=== PATIENT | female | born 1980 | race African-American/Black ===

== ENCOUNTER 2019-06-17 06:52 | Inpatient (IN) | payer BC, OTHER ==
[2019-06-17] MEDS ORDERED: DEXTROSE 5%-LACTATED RINGERS 1,000 ML IV SCH (07:00)
[2019-06-17 08:08] LABS: BASO % 0.3 % (0-2.0); EOS % 1.6 % (0-4.5); HEMATOCRIT 30.8 % (32.4-45.2); LYMPH % 14.4 % (8-40); MCH 26.1 pg (25.7-33.7); MCHC 32.5 g/dl (32.0-36.0); MEAN CELL VOLUME 80.2 fl (80-96); MEAN PLT VOLUME 10.7 fl (7.5-11.1); MONO % 8.1 % (3.8-10.2); NEUT % 75.6 % (42.8-82.8); PLATELET COUNT 145 K/MM3 (134-434); RBC 3.84 M/mm3 (3.60-5.2); RDW 16.1 % (11.6-15.6); WHITE BLOOD COUNT 14.7 K/mm3 (4.0-10.0)
[2019-06-17 08:32] LABS: ALBUMIN 2.6 g/dl (3.4-5.0); BILIRUBIN,TOTAL 0.2 mg/dL (0.2-1); BLOOD UREA NITROGEN 14.2 mg/dL (7-18); CALCIUM 8.6 mg/dL (8.5-10.1); CREATININE 0.6 mg/dL (0.55-1.3); POTASSIUM 4.1 mmol/L (3.5-5.1); TOT PROT 5.8 g/dl (6.4-8.2); URIC ACID 5.4 mg/dL (2.6-7.2)
[2019-06-17 08:37] LABS: RETICULOCYTES 2.41 % (0.5-1.5)
[2019-06-17] MEDS ORDERED: PROMETHAZINE HCL 25 MG/1 ML VIAL IVPB ONE (08:38)
[2019-06-17] MEDS ORDERED: BUTORPHANOL TARTRATE 1 MG/ML VIAL IVPUSH ONE (08:38)
[2019-06-17 08:42] LABS: SGOT/AST 21 U/L (15-37); SGPT/ALT 28 U/L (13-61)
[2019-06-17 08:44] LABS: INR 0.92 (0.83-1.09); PROTHROMBIN TIME (PATIENT) 10.8 SEC (9.7-13.0)
[2019-06-17 08:46] LABS: ACTIVATED PTT 24.1 SECONDS (25.2-36.5)
--- NOTE | 2019-06-17 08:48 | HP ---
Past Medical History - Primary Care Physician PCP:: Angus Wall - Admission Chief Complaint: 34 weeks, iugr, AMA, PIH History of Present Illness: 38 yo f edc by bj 07/28/19 34.1 weeks gestation with hx of IUGR .less than 3 percentile with HTN and proteinuria , AMA . BP 140/90 , no head ache or blurred vision ,no RUQ pain , good fm, admitted for cervidil induction as per M recommendation. risks associated with induction and ulternatives discussed with patient History Source: Patient Limitations to Obtaining History: No Limitations - Past Medical History Heme/Onc: Yes: Anemia (hx of Thaassemia minor) - Past Surgical History Hx Myomectomy: No Hx Transabdominal Cerclage: No - Smoking History Have you smoked in the past 12 months: No - Alcohol/Substance Use Hx Alcohol Use: No History of Substance Use: reports: None - Social History Usual Living Arrangement: Yes: With Spouse History of Recent Travel: No Home Medications - Allergies Allergies/Adverse Reactions: Allergies Allergy/AdvReac Type Severity Reaction Status Date / Time amoxicillin [From Augmentin] Allergy Unknown Hives Verified 06/17/19 08:09 clavulanic acid Allergy Unknown Hives Verified 06/17/19 08:09 [From Augmentin] doxycycline Allergy Unknown Hives Verified 06/17/19 08:09 - Home Medications Home Medications: Ambulatory Orders Aspirin [ASA -] 81 mg PO DAILY 06/13/19 Ferrous Sulfate [Feosol] 325 mg PO BID 06/13/19 Vitamins (Sjr) - 1 tab PO DAILY 06/13/19 Review of Systems - Review of Systems Constitutional: reports: No Symptoms Eyes: reports: No Symptoms HENT: reports: No Symptoms Neck: reports: No Symptoms Cardiovascular: reports: No Symptoms Respiratory: reports: No Symptoms Gastrointestinal: reports: No Symptoms Genitourinary: reports: No Symptoms Breasts: reports: No Symptoms Reported Musculoskeletal: reports: No Symptoms Integumentary: reports: No Symptoms Neurological: reports: No Symptoms Endocrine: reports: No Symptoms Hematology/Lymphatic: reports: No Symptoms Psychiatric: reports: No Symptoms Physical Exam - Maternity Constitutional: Yes: Well Nourished, No Distress, Calm Eyes: Yes: WNL, Conjunctiva Clear, EOM Intact HENT: Yes: WNL, Atraumatic, Normocephalic Neck: Yes: WNL, Supple, Trachea Midline Cardiovascular: Yes: WNL, Regular Rate and Rhythm Breast(s): Yes: WNL - Abdominal Exam/OB Fundal Height: 32 Number of Fetuses: Single Presentation: Vertex Contractions: No Intensity: Unaware Monitor Mode: External Heart Rate Location: [facility] Category: I Accelerations: Non-Uniform Decelerations: None - Vaginal Exam/OB Vaginal Bleediing: No Speculum Exam: No Dilatation (cm): closed Effacement (%): 25 Amniotic Membrane Status: Intact Presentation: Vertex/Position Station: -3 - Physical Exam Musculoskeletal: Yes: WNL Extremities: Yes: WNL Edema: Yes Edema: LLE: 2+, RLE: 2+ Integumentary: Yes: WNL Deep Tendon Reflex Grade: Normal +2 ...Motor Strength: WNL Psychiatric: Yes: WNL - Labs Lab Results: CBC, BMP 06/17/19 07:52 06/17/19 07:52 Hemorrhage Risk Assessment - Risk Factors Medium Risk Factors: Yes: None High Risk Factors: Yes: None Risk Score: 1 Risk Level: Medium Risk Problem List - Problems (1) with 34 completed weeks gestation Code(s): Z3A.34 - 34 WEEKS GESTATION OF (2) IUGR (intrauterine growth restriction) affecting care of mother Code(s): O36.5990 - MATERN CARE FOR OTH OR SUSP POOR FETL GRTH, UNSP TRI, UNSP Qualifiers: Fetus number: single or unspecified fetus Trimester: third trimester Qualified Code(s): O36.5930 - Maternal care for other known or suspected poor growth, third trimester, not applicable or unspecified (3) induced hypertension, antepartum Code(s): O13.9 - GESTATIONAL HTN W/O SIGNIFICANT PROTEINURIA, UNSP TRIMESTER (4) Advanced maternal age (AMA) in Code(s): NHM0918 - Assessment/Plan IUGR, PIH, asymptomatic, BP stable , if symptomatic or increase in BP will start MGso4 admit for cervidil induction , risks associated with cervidil discussed , ulternatives c/s risks explained, GBS unknown PCN allergy , will start Clindamycin cont. [facility] lab monitor BP,
[2019-06-17 08:59] VITALS: BMI 37.9
[2019-06-17] MEDS ORDERED: DINOPROSTONE 10 MG VAGINAL SUPPOSITORY VG ONE (09:00)
[2019-06-17] MEDS ORDERED: CLINDAMYCIN 900 MG PREMIX IVPB 900 MG/50 ML BAG IVPB ONE (09:00)
[2019-06-17] MEDS ORDERED: CLINDAMYCIN PHOSPHATE 600 MG/4 ML VIAL ONE (09:21)
[2019-06-17 14:21] LABS: ANISOCYTOSIS 1+; MACROCYTOSIS 1+; PLATELET ESTIMATE DECREASED
[2019-06-17] MEDS: CLINDAMYCIN 600MG PREMIX IVPB 600 MG/50 ML BAG IVPB SCH (15:15)
[2019-06-17] MEDS ORDERED: CITRIC ACID/SODIUM CITRATE 30 ML UNIT-DOSE CUP PO ONE (21:14)
[2019-06-17] MEDS ORDERED: OXYTOCIN 20 UNITS in 0.9% NS 20 UNIT/1,000 ML INFUS.BAG IV ONE (21:15)
[2019-06-17] MEDS ORDERED: PROPOFOL 20 ML ONE (21:18)
[2019-06-17] MEDS ORDERED: SUCCINYLCHOLINE CHLORIDE 200 MG/10 ML SYRINGE ONE (21:18)
[2019-06-17] MEDS ORDERED: morphine SULFATE/PF 0.5 MG/ML (2cc Syringe - QUVA) ONE (21:18)
[2019-06-17] MEDS ORDERED: PHENYLEPHRINE HCL 10 MG/1 ML SINGLE DOSE VIAL ONE (21:18)
[2019-06-17] MEDS ORDERED: ePHEDrine SULFATE 50 MG/1 ML AMPULE ONE (21:19)
--- NOTE | 2019-06-17 21:19 | PN ---
Progress Note (short form) - Note Progress Note: cervidil removed , cx clp vx -3 mi , fhr cat 1, irregular contraction , c/s discussed , agreed to have c/s. risks discussed , ulternatives pitocin discussed , declined Problem List - Problems (1) with 34 completed weeks gestation Code(s): Z3A.34 - 34 WEEKS GESTATION OF (2) IUGR (intrauterine growth restriction) affecting care of mother Code(s): O36.5990 - MATERN CARE FOR OTH OR SUSP POOR FETL GRTH, UNSP TRI, UNSP Qualifiers: Fetus number: single or unspecified fetus Trimester: third trimester Qualified Code(s): O36.5930 - Maternal care for other known or suspected poor growth, third trimester, not applicable or unspecified (3) induced hypertension, antepartum Code(s): O13.9 - GESTATIONAL HTN W/O SIGNIFICANT PROTEINURIA, UNSP TRIMESTER (4) Advanced maternal age (AMA) in Code(s): UPM5048 -
[2019-06-17] MEDS ORDERED: OXYTOCIN 10 UNITS/ML VIAL ONE (21:49)
[2019-06-17] MEDS ORDERED: KETOROLAC TROMETHAMINE 30 MG/1 ML VIAL ONE ×2 (21:51→22:20)
[2019-06-17] MEDS ORDERED: ONDANSETRON 4 MG/2 ML VIAL IVPUSH PRN (22:12)
[2019-06-17] MEDS ORDERED: IBUPROFEN 600 MG TABLET (FP) PO PRN (22:12)
[2019-06-17] MEDS ORDERED: diphenhydrAMINE HCL 25 MG CAPSULE (FP) PO PRN (22:29)
[2019-06-17] MEDS ORDERED: METHYLERGONOVINE MALEATE 0.2 MG/1 ML AMP IM PRN (22:29)
[2019-06-17] MEDS ORDERED: IBUPROFEN 800 MG/8 ML IJ IVPB PRN (22:29)
[2019-06-17] MEDS ORDERED: BENZOCAINE 28 GM HEMORRHOIDAL OINTMENT PR PRN (22:29)
[2019-06-17] MEDS ORDERED: WITCH HAZEL 50% (TUCKS) 40 PAD/JAR PAD TP PRN (22:29)
[2019-06-17] MEDS ORDERED: BENZOCAINE 20% 57 GM BOTTLE TP PRN (22:29)
[2019-06-17] MEDS ORDERED: oxyCODONE HCL 5 MG TABLET PO PRN ×2 (22:29)
[2019-06-17] MEDS ORDERED: OXYTOCIN 20 UNITS in 0.9% NS 20 UNIT/1,000 ML INFUS.BAG IV SCH (22:30)
--- NOTE | 2019-06-17 22:40 | OP ---
Operative Note - Note: Operative Date: 06/17/19 Pre-Operative Diagnosis: 34 weeks, IUGR, PIH Operation: primary LST c/s Findings: live baby girl 05/12. OP position, clear fluid Surgeon: Angus Wall Surgery Specialist: Reid Rajput Anesthesia: Spinal Specimens Removed: placenta Estimated Blood Loss (mls): 500 Drains & Tubes with Location: [place] Blood Volume Replaced (mls): 0 Operative Report Dictated: Yes
[2019-06-18] MEDS: CLINDAMYCIN 600MG PREMIX IVPB 600 MG/50 ML BAG IVPB SCH ×3 (01:50→17:23)
--- NOTE | 2019-06-18 06:38 | PN ---
Post Progress Note - Subjective Subjective: No complaints. Post Day: 1 Type of Delivery: Primary C/S Vital Signs: Vital Signs Temperature 98.1 F 06/18/19 02:00 Pulse Rate 73 06/18/19 02:00 Respiratory Rate 18 06/18/19 04:00 Blood Pressure 137/57 L 06/18/19 02:00 O2 Sat by Pulse Oximetry (%) 98 06/18/19 00:00 Breast Exam: Yes: Soft Uterus: Yes: Fundus Firm, Fundus below umbilicus Incision: Yes: Dressing dry and intact Abdomen/GI: Yes: Abdomen soft Lochia: Yes: Rubra Lochia, amount: Small Extremities: Yes: Calves non-tender Perineum: Yes: Intact Activity: Ambulating - Labs Labs: CBC WBC 14.7 K/mm3 (4.0-10.0) H 06/17/19 07:52 RBC 3.84 M/mm3 (3.60-5.2) 06/17/19 07:52 Hgb 10.0 GM/dL (10.7-15.3) L 06/17/19 07:52 Hct 30.8 % (32.4-45.2) L 06/17/19 07:52 MCV 80.2 fl (80-96) 06/17/19 07:52 MCH 26.1 pg (25.7-33.7) 06/17/19 07:52 MCHC 32.5 g/dl (32.0-36.0) 06/17/19 07:52 RDW 16.1 % (11.6-15.6) H 06/17/19 07:52 Plt Count 145 K/MM3 (134-434) 06/17/19 07:52 MPV 10.7 fl (7.5-11.1) 06/17/19 07:52 Absolute Neuts (auto) 11.1 K/mm3 (1.5-8.0) H 06/17/19 07:52 Neutrophils % 75.6 % (42.8-82.8) 06/17/19 07:52 Neutrophils % (Manual) 81.0 % (42.8-82.8) 06/17/19 07:52 Band Neutrophils % 0.0 % 06/17/19 07:52 Lymphocytes % 14.4 % (8-40) 06/17/19 07:52 Lymphocytes % (Manual) 7.0 % (8-40) L 06/17/19 07:52 Monocytes % 8.1 % (3.8-10.2) 06/17/19 07:52 Monocytes % (Manual) 7 % (3.8-10.2) 06/17/19 07:52 Eosinophils % 1.6 % (0-4.5) 06/17/19 07:52 Eosinophils % (Manual) 1.0 % (0-4.5) 06/17/19 07:52 Basophils % 0.3 % (0-2.0) 06/17/19 07:52 Basophils % (Manual) 0.0 % (0-2.0) 06/17/19 07:52 Myelocytes % (Man) 3 % (0-2) H 06/17/19 07:52 Promyelocytes % (Man) 0 % (0-2) 06/17/19 07:52 Blast Cells % (Manual) 0 % (0-0) 06/17/19 07:52 Nucleated RBC % 0 % (0-0) 06/17/19 07:52 Metamyelocytes 0 % (0-2) 06/17/19 07:52 Hypochromia 0 06/17/19 07:52 Platelet Estimate Decreased 06/17/19 07:52 Polychromasia 1+ 06/17/19 07:52 Anisocytosis 1+ 06/17/19 07:52 Microcytosis 0 06/17/19 07:52 Macrocytosis 1+ 06/17/19 07:52 Fragmented RBCs 1+ 06/17/19 07:52 Retic Count 2.41 % (0.5-1.5) H 06/17/19 07:52 Haptoglobin 89 mg/dL (34-200) 06/17/19 07:52 Assessment/Plan PPD#1 s/p primary LT C/S. Pt is doing well. BP in normal range. Continue routine care and postop care. Ambulate F/u labs
[2019-06-18 07:41] LABS: BASO % 0.4 % (0-2.0); EOS % 0.9 % (0-4.5); HEMATOCRIT 30.1 % (32.4-45.2); HEMOGLOBIN 9.9 GM/dL (10.7-15.3); LYMPH % 12.1 % (8-40); MCHC 32.8 g/dl (32.0-36.0); MEAN PLT VOLUME 10.3 fl (7.5-11.1); NEUT % 78.6 % (42.8-82.8); PLATELET COUNT 138 K/MM3 (134-434); RBC 3.81 M/mm3 (3.60-5.2); RDW 16.4 % (11.6-15.6); WHITE BLOOD COUNT 12.5 K/mm3 (4.0-10.0)
--- NOTE | 2019-06-18 08:32 | PN ---
Progress Note (short form) - Note Progress Note: Post op day#1.S/P C Section under spinal with duramorph uneventful.Patient stable and has very little pain for which she is on medication.No any anesthesia related problem.Patient Dc from the anesthesia care.
[2019-06-18] MEDS: ENOXAPARIN NA (PORCINE) 40 MG/0.4 ML DISP.SYRIN SQ SCH (09:56)
[2019-06-18 10:40] LABS: ANISOCYTOSIS 0; MACROCYTOSIS 0; PLATELET ESTIMATE DECREASED
[2019-06-18] MEDS: ACETAMINOPHEN 325 MG TABLET (FP) PO PRN ×2 (13:29→19:29)
[2019-06-18] MEDS: IBUPROFEN 600 MG TABLET (FP) PO PRN ×2 (13:30→19:29)
[2019-06-18] MEDS: SIMETHICONE 80 MG TAB.CHEW (FP) PO PRN ×2 (13:33→19:29)
[2019-06-18] MEDS ORDERED: BISACODYL 10 MG SUPP.RECT PR PRN (22:30)
--- NOTE | 2019-06-19 00:33 | PN ---
Post Progress Note - Subjective Subjective: Patient without acute complaints. Denies headache, visual changes, RUQ pain Reports tolerating oral intake without nausea or vomiting. Ambulating without dizziness. Denies fevers or chills. Pain well controlled with oral pain medication. Hand expressing colostrum well Passing flatus. Post Day: 2 Type of Delivery: Primary C/S Vital Signs: Vital Signs Temperature 98.6 F 06/18/19 22:00 Pulse Rate 58 L 06/18/19 22:00 Respiratory Rate 18 06/18/19 22:00 Blood Pressure 137/74 06/18/19 22:00 O2 Sat by Pulse Oximetry (%) 98 06/18/19 00:00 Breast Exam: Yes: Soft Uterus: Yes: Fundus Firm, Fundus below umbilicus Incision: Yes: Sutures intact. No: Redness, Oozing Abdomen/GI: Yes: Abdomen soft, Abdominal Distention (mild soft), Tender (minimal ), Passing flatus, Tolerating PO Lochia: Yes: Rubra Lochia, amount: Moderate Extremities: Yes: Calves non-tender, Edema (+1) Activity: Ambulating - Labs Labs: CBC WBC 12.5 K/mm3 (4.0-10.0) H 06/18/19 07:03 RBC 3.81 M/mm3 (3.60-5.2) 06/18/19 07:03 Hgb 9.9 GM/dL (10.7-15.3) L 06/18/19 07:03 Hct 30.1 % (32.4-45.2) L 06/18/19 07:03 MCV 79.0 fl (80-96) L 06/18/19 07:03 MCH 26.0 pg (25.7-33.7) 06/18/19 07:03 MCHC 32.8 g/dl (32.0-36.0) 06/18/19 07:03 RDW 16.4 % (11.6-15.6) H 06/18/19 07:03 Plt Count 138 K/MM3 (134-434) 06/18/19 07:03 MPV 10.3 fl (7.5-11.1) 06/18/19 07:03 Absolute Neuts (auto) 9.8 K/mm3 (1.5-8.0) H 06/18/19 07:03 Neutrophils % 78.6 % (42.8-82.8) 06/18/19 07:03 Neutrophils % (Manual) 78.2 % (42.8-82.8) 06/18/19 07:03 Band Neutrophils % 1.0 % 06/18/19 07:03 Lymphocytes % 12.1 % (8-40) 06/18/19 07:03 Lymphocytes % (Manual) 12.9 % (8-40) D 06/18/19 07:03 Monocytes % 8.0 % (3.8-10.2) 06/18/19 07:03 Monocytes % (Manual) 7 % (3.8-10.2) 06/18/19 07:03 Eosinophils % 0.9 % (0-4.5) 06/18/19 07:03 Eosinophils % (Manual) 0.0 % (0-4.5) D 06/18/19 07:03 Basophils % 0.4 % (0-2.0) 06/18/19 07:03 Basophils % (Manual) 0.0 % (0-2.0) 06/18/19 07:03 Myelocytes % (Man) 0 % (0-2) D 06/18/19 07:03 Promyelocytes % (Man) 0 % (0-2) 06/18/19 07:03 Blast Cells % (Manual) 0 % (0-0) 06/18/19 07:03 Nucleated RBC % 0 % (0-0) 06/18/19 07:03 Metamyelocytes 1 % (0-2) D 06/18/19 07:03 Hypochromia 0 06/18/19 07:03 Platelet Estimate Decreased 06/18/19 07:03 Polychromasia 0 06/18/19 07:03 Poikilocytosis 0 06/18/19 07:03 Anisocytosis 0 06/18/19 07:03 Microcytosis 0 06/18/19 07:03 Macrocytosis 0 06/18/19 07:03 Fragmented RBCs 1+ 06/17/19 07:52 Retic Count 2.41 % (0.5-1.5) H 06/17/19 07:52 Haptoglobin 89 mg/dL (34-200) 06/17/19 07:52 Assessment/Plan 38 yo POD # 2 s/p primary CD, afebrile, mild asymptomatic anemia, vital signs stable, doing well 1. Continue routine postoperative care. 2. BPs stable, s/p magnesium, no signs of worsening PEC 3. Encourage ambulation and incentive spirometer use 4. Continue oral pain medication 5. Anticipate discharge home postoperative day #3 or #4
[2019-06-19] MEDS: SIMETHICONE 80 MG TAB.CHEW (FP) PO PRN ×3 (03:13→22:11)
[2019-06-19] MEDS: ACETAMINOPHEN 325 MG TABLET (FP) PO PRN ×4 (03:16→22:12)
[2019-06-19] MEDS: IBUPROFEN 600 MG TABLET (FP) PO PRN ×4 (03:18→22:13)
[2019-06-19] MEDS: ENOXAPARIN NA (PORCINE) 40 MG/0.4 ML DISP.SYRIN SQ SCH (09:31)
[2019-06-19] MEDS: LABETALOL HCL 200 MG TABLET (FP) PO PRN (15:59)
--- NOTE | 2019-06-19 17:25 | PATH ---
Surgical Pathology Report Patient Name: HORTENSIA MICHAUD [facility]. Rec. #: [id number] /Age/Gender: 1980 (Age: 38) / F Account: [id number] Location: [facility] OBS/SOCK LINER Taken: 06/17/2019 Received: 06/18/2019 Reported: 06/19/2019 Physicians: Angus Wall M.D. Specimen(s) Received PLACENTA Clinical History Thalassemia minor, abnormal Pap, dysmenorrhea, ovarian cyst, fibroids Postoperative diagnosis: IUGR, PIH, failed induction Final Diagnosis PLACENTA: THIRD TRIMESTER PLACENTA. TRIVASCULAR CORD. MEMBRANES WITH NO DIAGNOSTIC ABNORMALITIES. Electronically Signed Monse Rivera M.D. Gross Description The specimen is received fresh labeled placenta and is a 360 gram, 13.5 x 13.0 x 2.6 cm. placenta with attached membranes and umbilical cord. The attached membranes are rausch, translucent with focal opacities and insert marginally. The umbilical cord measures 9 cm. in length and averages 1.2 cm. in diameter. The cord inserts eccentrically, 2.5 cm. to the nearest margin. No true knots or strictures are identified. Cut surface of the umbilical cord reveals 3 vessels. The surface is patel-blue with minimal fibrin deposition and appropriate caliber vessels. The maternal surface is red-brown with focal defects. Sectioning reveals red-brown, spongy parenchyma. No lesions are identified. Drag Seiner sections are submitted in three cassettes as follows: 1- membrane rolls and umbilical cord; 2-3- full thickness sections of placenta. /06/18/2019 [facility]/06/18/2019
[2019-06-19] MEDS: SENNOSIDES/DOCUSATE COMBO (SENNA PLUS) TABLET (UD) PO PRN (22:09)
[2019-06-20] MEDS: LABETALOL HCL 200 MG TABLET (FP) PO PRN ×3 (06:11→22:57)
[2019-06-20 07:14] LABS: BASO % 0.3 % (0-2.0); EOS % 1.2 % (0-4.5); HEMOGLOBIN 9.7 GM/dL (10.7-15.3); LYMPH % 9.9 % (8-40); MCH 26.4 pg (25.7-33.7); MCHC 33.3 g/dl (32.0-36.0); MEAN CELL VOLUME 79.4 fl (80-96); MEAN PLT VOLUME 9.6 fl (7.5-11.1); MONO % 8.3 % (3.8-10.2); NEUT % 80.3 % (42.8-82.8); PLATELET COUNT 160 K/MM3 (134-434); RBC 3.66 M/mm3 (3.60-5.2); RDW 16.3 % (11.6-15.6); WHITE BLOOD COUNT 12.4 K/mm3 (4.0-10.0)
--- NOTE | 2019-06-20 08:01 | PN ---
Progress Note (short form) - Note Progress Note: pod 3 ,s/p c/s , doing well, ambulating , passing gas. no headache, blurred vision CBC, BMP 06/20/19 06:45 06/17/19 07:52 Last Vital Signs Temp Pulse Resp BP Pulse Ox 98.8 F 99 H 20 149/75 98 06/19/19 22:00 06/20/19 06:00 06/20/19 06:00 06/20/19 06:00 06/18/19 00:00 abdomen soft, no distension, no cva . BS present incision dry, clean no calf tenderness plan ambulate , cbc monitor BP Problem List - Problems (1) with 34 completed weeks gestation Code(s): Z3A.34 - 34 WEEKS GESTATION OF (2) IUGR (intrauterine growth restriction) affecting care of mother Code(s): O36.5990 - MATERN CARE FOR OTH OR SUSP POOR FETL GRTH, UNSP TRI, UNSP Qualifiers: Fetus number: single or unspecified fetus Trimester: third trimester Qualified Code(s): O36.5930 - Maternal care for other known or suspected poor growth, third trimester, not applicable or unspecified (3) induced hypertension, antepartum Code(s): O13.9 - GESTATIONAL HTN W/O SIGNIFICANT PROTEINURIA, UNSP TRIMESTER (4) Advanced maternal age (AMA) in Code(s): PGY3075 -
[2019-06-20] MEDS: ENOXAPARIN NA (PORCINE) 40 MG/0.4 ML DISP.SYRIN SQ SCH (09:51)
[2019-06-20] MEDS: ACETAMINOPHEN 325 MG TABLET (FP) PO PRN ×3 (09:52→22:58)
[2019-06-20] MEDS: SIMETHICONE 80 MG TAB.CHEW (FP) PO PRN ×3 (09:52→22:58)
[2019-06-20] MEDS: IBUPROFEN 600 MG TABLET (FP) PO PRN ×3 (09:52→22:59)
[2019-06-20] MEDS: DEXTROSE 5%-LACTATED RINGERS 1,000 ML IV SCH ×2 (22:34→22:35)
[2019-06-20] MEDS: ELECTROLYTE-148 SOLN 1,000 ML IV SCH (22:35)
[2019-06-20] MEDS: CLINDAMYCIN 600MG PREMIX IVPB 600 MG/50 ML BAG IVPB SCH (22:35)
[2019-06-20] MEDS: SENNOSIDES/DOCUSATE COMBO (SENNA PLUS) TABLET (UD) PO PRN (22:57)
[2019-06-21] MEDS: LABETALOL HCL 200 MG TABLET (FP) PO PRN ×2 (06:11→17:16)
[2019-06-21] MEDS: SIMETHICONE 80 MG TAB.CHEW (FP) PO PRN ×2 (06:19→17:16)
[2019-06-21] MEDS: IBUPROFEN 600 MG TABLET (FP) PO PRN ×2 (06:45→17:16)
[2019-06-21] MEDS: ACETAMINOPHEN 325 MG TABLET (FP) PO PRN ×2 (06:45→17:16)
--- NOTE | 2019-06-21 08:18 | PN ---
Post Progress Note - Subjective Subjective: Patient without acute complaints. Denies headache, change in vision, right upper quadrant pain. Reports tolerating oral intake without nausea or vomiting. Ambulating without dizziness. Denies fevers or chills. Pain well controlled with oral pain medication. Pumping without issue. Passing flatus. Post Day: 4 Type of Delivery: Primary C/S Vital Signs: Vital Signs Temperature 98.5 F 06/20/19 22:55 Pulse Rate 85 06/21/19 06:00 Respiratory Rate 18 06/20/19 22:55 Blood Pressure 157/90 06/21/19 06:00 O2 Sat by Pulse Oximetry (%) 98 06/18/19 00:00 Breast Exam: Yes: Engorged Uterus: Yes: Fundus Firm, Fundus below umbilicus Incision: Yes: Sutures intact. No: Redness, Oozing Abdomen/GI: Yes: Abdomen soft, Abdominal Distention, Tender, Passing flatus, Tolerating PO Lochia: Yes: Rubra Lochia, amount: Moderate Extremities: Yes: Calves non-tender, Edema (trace) Activity: Ambulating - Labs Labs: CBC WBC 12.4 K/mm3 (4.0-10.0) H 06/20/19 06:45 RBC 3.66 M/mm3 (3.60-5.2) 06/20/19 06:45 Hgb 9.7 GM/dL (10.7-15.3) L 06/20/19 06:45 Hct 29.0 % (32.4-45.2) L 06/20/19 06:45 MCV 79.4 fl (80-96) L 06/20/19 06:45 MCH 26.4 pg (25.7-33.7) 06/20/19 06:45 MCHC 33.3 g/dl (32.0-36.0) 06/20/19 06:45 RDW 16.3 % (11.6-15.6) H 06/20/19 06:45 Plt Count 160 K/MM3 (134-434) 06/20/19 06:45 MPV 9.6 fl (7.5-11.1) 06/20/19 06:45 Absolute Neuts (auto) 9.9 K/mm3 (1.5-8.0) H 06/20/19 06:45 Neutrophils % 80.3 % (42.8-82.8) 06/20/19 06:45 Neutrophils % (Manual) 78.2 % (42.8-82.8) 06/18/19 07:03 Band Neutrophils % 1.0 % 06/18/19 07:03 Lymphocytes % 9.9 % (8-40) 06/20/19 06:45 Lymphocytes % (Manual) 12.9 % (8-40) D 06/18/19 07:03 Monocytes % 8.3 % (3.8-10.2) 06/20/19 06:45 Monocytes % (Manual) 7 % (3.8-10.2) 06/18/19 07:03 Eosinophils % 1.2 % (0-4.5) 06/20/19 06:45 Eosinophils % (Manual) 0.0 % (0-4.5) D 06/18/19 07:03 Basophils % 0.3 % (0-2.0) 06/20/19 06:45 Basophils % (Manual) 0.0 % (0-2.0) 06/18/19 07:03 Myelocytes % (Man) 0 % (0-2) D 06/18/19 07:03 Promyelocytes % (Man) 0 % (0-2) 06/18/19 07:03 Blast Cells % (Manual) 0 % (0-0) 06/18/19 07:03 Nucleated RBC % 0 % (0-0) 06/20/19 06:45 Metamyelocytes 1 % (0-2) D 06/18/19 07:03 Hypochromia 0 06/18/19 07:03 Platelet Estimate Decreased 06/18/19 07:03 Polychromasia 0 06/18/19 07:03 Poikilocytosis 0 06/18/19 07:03 Anisocytosis 0 06/18/19 07:03 Microcytosis 0 06/18/19 07:03 Macrocytosis 0 06/18/19 07:03 Fragmented RBCs 1+ 06/17/19 07:52 Retic Count 2.41 % (0.5-1.5) H 06/17/19 07:52 Haptoglobin 89 mg/dL (34-200) 06/17/19 07:52 Assessment/Plan 38 yo POD # 4 s/p primary CD, afebrile, mild asymptomatic anemia, vital signs stable, doing well 1. Patient stable for discharge home today. 2. Patient encouraged to contact MD for: - Severe pain not controlled by oral pain medication - Fevers or chills - Nausea or vomiting, intolerance of oral intake - Incision redness, tenderness or discharge 3. Patient to follow up in office in 1-2 weeks for incision check, 4-6 weeks for visit
--- NOTE | 2019-06-21 08:20 | DS ---
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[employer] Present: Yes Name: Ann Szymanski Gender: Female Weight: 3 lb 10 oz Position: OP Total Hours ROM (Hrs/Mins): 2m - 1 Minute Total Score: 9 5 Minutes Total Score: 9 - Feeding Plan Initial Plan: Exclusive throughout hospitalization Discharge Summary Problems reviewed: Yes Reason For Visit: LABOR Current Active Problems Advanced maternal age (AMA) in (Acute) IUGR (intrauterine growth restriction) affecting care of mother (Acute) induced hypertension, antepartum (Acute) with 34 completed weeks gestation (Acute) Procedures: Principal: Delivery Hospital Course: Patient was admitted for delivery for IUGR; she underwent induction of labor and eventually underwent delivery POD # 1 patient ambulated, voiding, passing gas, tolerating oral intake and with adequate pain control. Noted to have mild asymptomatic anemia She fulfilled all criteria for discharge POD #3 Condition: Good - Instructions Diet, Activity, Other Instructions: Follow up in 1 week for incision and BP check Physical activity Resume your normal everyday activity as tolerated no heavy lifting or exercise until seen by your surgeon. You may walk unlimited amy of and climb stairs. You may resume driving the car when you feel safe and comfortable behind the wheel. No sexual activity as instructed. Wound care If you have a bandage, leave it on, and keep dry for 48-72 hours. After that time discard the outer bandage. If they are tapes on the skin under the out of bandage leave them in place. They will peel off in the next 7 to 10 days. Do Not Peel them off. You may shower the day after surgery. If there are tapes present on the skin, you may shower over them. Diet There are no dietary restrictions. Eat healthy, high-fiber foods. Drink 6 to 8 glasses of liquid each day. This will assist in keeping your bowels are regular. Pain management You may take Tylenol or acetaminophen or Ibuprofen (for example, Motrin, Advil etc.) from my pain prescription medication is ordered should be taken as prescribed for moderate to severe pain. Call MD for any of the following: Severe pain not relieved by medication Fever of 101 or higher Excessive bleeding or drainage on dressing Inability to urinate Referrals: Angus Wall MD [Staff Physician] - Disposition: HOME - Home Medications Comprehensive Discharge Medication List: Ambulatory Orders Aspirin [ASA -] 81 mg PO DAILY 06/13/19 Ferrous Sulfate [Feosol] 325 mg PO BID 06/13/19 Vitamins (Sjr) - 1 tab PO DAILY 06/13/19 Acetaminophen [Tylenol -] 1,000 mg PO Q6H #60 tablet 06/21/19 Ibuprofen [Motrin -] 600 mg PO QID #28 tablet 06/21/19 Labetalol HCl [Normodyne -] 200 mg PO Q6H PRN #60 tablet 06/21/19 Simethicone 80 mg PO BID #30 tab.chew 06/21/19
[2019-06-21] MEDS: ENOXAPARIN NA (PORCINE) 40 MG/0.4 ML DISP.SYRIN SQ SCH (09:30)
[2019-06-21 17:14] VITALS: BP 161/86; PULSE 90; TEMP 98
== END 2019-06-21 17:50 | disposition home or self-care (01) | DRG 788 ==
LOC: JLDR 06:52 → J3W 23:57
PROVIDERS: ADMIT Obstetrics & Gynecology; ATTEND Obstetrics & Gynecology
PROC: 10D00Z1 Extraction of Products of Conception, Low, Open Approach (ICD-10-PCS; principal; 2019-06-17)
DX: O36.5930 Maternal care for other known or suspected poor fetal growth, third trimester, not applicable or unspecified (principal); O13.4 Gestational [pregnancy-induced] hypertension without significant proteinuria, complicating childbirth; Z3A.34 34 weeks gestation of pregnancy; Z37.0 Single live birth
CPT/HCPCS: 36415; 36600; 80053; 82803; 82977; 83010; 84450; 84460; 84550; 85025; 85044; 85610; 85730; 86593; 86850; 86900; 86901

== ENCOUNTER 2019-06-23 16:19 | Inpatient (IN) | payer BC, OTHER ==
[2019-06-23 17:04] VITALS: BMI 35.9
--- NOTE | 2019-06-23 17:54 | PDOC ---
History of Present Illness - General Chief Complaint: Shortness of Breath Stated Complaint: SENT BY OBGYN Time Seen by Provider: 06/23/19 17:18 - History of Present Illness Initial Comments: 06/23/19 17:48 38 y/o F hx of preclampsia 6 days s/p presenting with 3 days of shortness of breath. sent in by her molecular pathologist Dr. Rajput for evaluation, She began having sob with exertion relieved with rest on Sunday. She has not had any associated chest pain or cough. Also developed orthopnea with no episodes of PND. She was placed on labetalol by her PCP 200mg q 6hrs as needed for elevated blood pressure. she was has equally been taking tylenol and motrin for pain since hospital discharge. Her BP has been in the 160's systolic today. she denies any nausea,vomiting, diarrhea, burning, dysuria, fevers or chills. 06/23/19 21:31 Past History - Past Medical History Allergies/Adverse Reactions: Allergies Allergy/AdvReac Type Severity Reaction Status Date / Time amoxicillin [From Augmentin] Allergy Unknown Hives Verified 06/17/19 08:09 clavulanic acid Allergy Unknown Hives Verified 06/17/19 08:09 [From Augmentin] doxycycline Allergy Unknown Hives Verified 06/17/19 08:09 Home Medications: Ambulatory Orders Ferrous Sulfate [Feosol] 325 mg PO BID 06/13/19 Vitamins (Sjr) - 1 tab PO DAILY 06/13/19 Acetaminophen [Tylenol -] 1,000 mg PO Q6H #60 tablet 06/21/19 Ibuprofen [Motrin -] 600 mg PO QID #28 tablet 06/21/19 Labetalol HCl [Normodyne -] 200 mg PO Q6H PRN #60 tablet 06/21/19 Asthma: No Cancer: No Cardiac Disorders: No COPD: No Diabetes: No HTN: Yes Seizures: No Thyroid Disease: No - Immunization History Immunization Up to Date: No - Psycho Social/Smoking Cessation Hx Smoking History: Never smoked Have you smoked in the past 12 months: No Information on smoking cessation initiated: No Hx Alcohol Use: No Drug/Substance Use Hx: No Hx Substance Use Treatment: No *Physical Exam - Vital Signs Last Vital Signs Temp Pulse Resp BP Pulse Ox 97.8 F 76 18 163/83 97 06/23/19 17:01 06/23/19 17:01 06/23/19 17:01 06/23/19 17:01 06/23/19 17:01 - Physical Exam Comments: 06/23/19 18:04 GENERAL: Awake, alert, and fully oriented, in no acute distress HEAD: No signs of trauma, normocephalic, atraumatic EYES: PERRLA, EOMI, sclera anicteric, conjunctiva clear ENT: Auricles normal inspection, hearing grossly normal, nares patent, oropharynx clear without exudates. Moist mucosa NECK: Normal ROM, supple, no lymphadenopathy, JVD, or masses LUNGS: No distress, speaks full sentences, clear to auscultation bilaterally HEART: Regular rate and rhythm, normal S1 and S2, no murmurs, rubs or gallops, peripheral pulses normal and equal bilaterally. ABDOMEN: Soft, nontender, normoactive bowel sounds. suprapubic linear scar from C -section. no redness, induration or discharge. EXTREMITIES : Normal inspection, bilateral swelling in both legs. 2+ pitting edema bilaterally. NEUROLOGICAL: Cranial nerves II through XII grossly intact. Normal speech, no focal sensorimotor deficits SKIN: Warm, Dry, normal turgor, no rashes or lesions noted ED Treatment Course - LABORATORY CBC & Chemistry Diagram: 06/25/19 05:30 06/25/19 05:30 - RADIOLOGY Radiology Studies Ordered: Category Date Time Status CHEST CTA [CT] Stat CT Scan 06/23/19 17:45 Ordered Medical Decision Making - Medical Decision Making 06/23/19 18:44 38 y/o F hx of preclampsia 6 days s/p presenting with 3 days of shortness of breath with exertion. Workup ekg, cbc, cmp, ua, pt/inr/ptt, ldh,chest cta EKG: normal sinus rhythm, possible left atrial enlargement, no ST elevations. -BUN/CR currently pending 06/23/19 19:40 Labs remarkable for elevated Cr. 4.4 BUN 72 Elevated K+ 5.9 06/23/19 20:57 Dr. Nelson requested repeat chemistries and pt. admit to post- floor should values be confirmed Repeat bmp sent Dr. Isabel's recommendations 1 amp dextrose + 10 units of insulin 1 amp of bicarbonate lokelma 10 gm 1/2 NS at 100cc/hr calcium gluconate u/s kidneys and bladder 06/23/19 21:02 06/23/19 21:10 Pt getting chest pa &lateral. 06/23/19 21:30 BP elevated to 181/101. Labetalol 200mg PO ordered. pt confirms last dose was 7hrs ago. 06/23/19 21:56 Repeat BP is 170/89 after 200mg labetalol PO Repeat BMP: K+ down to 5.7 Bun/Cr: 77/4.1 06/23/19 22:02 06/23/19 22:24 Discharge - Discharge Information Problems reviewed: Yes Clinical Impression/Diagnosis: LUIS E (acute kidney injury) Condition: Stable - Follow up/Referral - Patient Discharge Instructions - Post Discharge Activity
--- NOTE | 2019-06-23 18:27 | PDOC ---
Documentation entered by Joanie Antunez SCRIBE, acting as scribe for Sharona Mayer MD. Sharona Mayer MD: This documentation has been prepared by the Tulio reis Brenda, SCRIBE, under my direction and personally reviewed by me in its entirety. I confirm that the documentation accurately reflects all work, treatment, procedures, and medical decision making performed by me. Attending Attestation - Resident Resident Name: Mychal Nova - ED Attending Attestation I have performed the following: I have examined & evaluated the patient, The case was reviewed & discussed with the resident, I agree w/resident's findings & plan, Exceptions are as noted - HPI HPI: 06/23/19 18:21 38 yo female who is 6 days p/w increasing shortness of breath. she had a c section s/p induction for pre eclampsia and IUGR - Physicial Exam PE: 06/23/19 18:24 wnwd 38 yo female in no acute respiratory distress but c/o shortness of breath of several days head ncat neck supple lungs no wheezing cvs [id number] abd incision site, no purulence ext +3 pitting edema neuro axox3 - Medical Decision Making 06/23/19 19:09 Concern for PE and pt will be sent for PE pt to be admitted for eclampsia ,pt has been hypertensive while on labetolol 06/23/19 19:36 Review of the labs show acute renal failure with creatinine 4.4 and a BUN of 72 Last chemistries show a creatinine of 0.6 on June 17 06/23/19 20:24 EKG is normal sinus rhythm at 73 bpm, normal QTC at 392 there is no signs of any acute ischemia or T wave abnormalities Case is discussed with Dr. Amber Rodriguez who requested we repeat the chemistries Dr. Maame stewart gave specific orders to Dr Brittni Gannon to treat the hyperkalemia 06/23/19 21:14 I did speak with the crayon molding machine operator Dr. Monroe and he brought up the concern for diuresis for this patient. After hearing my presentation he was more concerned that this is really result of a hypertensive emergency than cardiac and did not really think she was someone who is going to have a dilated cardiomyopathy. We will obtain a formal ECHO and he will be the crayon molding machine operator for this case 06/23/19 21:50 P chemistries shows creatinine still elevated at one 4.1 and the potassium is 5.7 Dr. Faith in the emergency department attending to the patient bedside She requests telemetry admission. Her concern is that this patient may progress to have a dilated cardiomyopathy and she should be in a monitored setting. Currently her cxr shows normal cardiac silhouette,no appreciable chf Impression hypertensive emergency status post with edema, increased creatinine increased BNP and shortness of breath
[2019-06-23 18:33] LABS: EPI CELLS 1.6 /HPF (0-5/HPF); HYALINE CASTS 1 /lpf (0-8); PH,URINE 5.5 (5.0-8.0); URINE APPEARANCE CLEAR; URINE BACTERIA 10.1 /hpf (NEGATIVE); URINE BILIRUBIN NEGATIVE (NEGATIVE); URINE COLOR YELLOW; URINE GLUCOSE (UA) NEGATIVE (NEGATIVE); URINE KETONE NEGATIVE (NEGATIVE); URINE LEUK ESTERASE TRACE (NEGATIVE); URINE NITRITE NEGATIVE (NEGATIVE); URINE PROTEIN NEGATIVE (NEGATIVE); URINE RBC 2 /hpf (0-4); URINE UROBILINOGEN 0.2 mg/dL (0.2-1.0); URINE WBC 3 /hpf (0-5)
[2019-06-23 18:46] LABS: INR 0.97 (0.83-1.09); PROTHROMBIN TIME (PATIENT) 11.4 SEC (9.7-13.0)
[2019-06-23 18:49] LABS: ACTIVATED PTT 26.6 SECONDS (25.2-36.5)
[2019-06-23 18:55] LABS: BASO % 0.5 % (0-2.0); EOS % 3.3 % (0-4.5); HEMATOCRIT 28.5 % (32.4-45.2); HEMOGLOBIN 9.2 GM/dL (10.7-15.3); LYMPH % 9.7 % (8-40); MCHC 32.2 g/dl (32.0-36.0); MEAN CELL VOLUME 80.7 fl (80-96); MEAN PLT VOLUME 9.5 fl (7.5-11.1); MONO % 8.8 % (3.8-10.2); NEUT % 77.7 % (42.8-82.8); PLATELET COUNT 222 K/MM3 (134-434); RBC 3.52 M/mm3 (3.60-5.2); RDW 16.2 % (11.6-15.6); WHITE BLOOD COUNT 10.3 K/mm3 (4.0-10.0)
[2019-06-23 19:19] LABS: MAGNESIUM 2.6 mg/dL (1.8-2.4)
[2019-06-23 19:33] LABS: ALBUMIN 2.6 g/dl (3.4-5.0); ALK PHOS 90 U/L (45-117); ANION GAP 10 MMOL/L (8-16); BILIRUBIN,TOTAL 0.2 mg/dL (0.2-1); BLOOD UREA NITROGEN 72.4 mg/dL (7-18); CALCIUM 9.5 mg/dL (8.5-10.1); CHLORIDE 107 mmol/L (98-107); CO2 22 mmol/L (21-32); CREATININE 4.4 mg/dL (0.55-1.3); GLUCOSE,RANDOM 74 mg/dL (74-106); N-TERMINAL BNP 1642.7 pg/ml (5-125); POTASSIUM 5.9 mmol/L (3.5-5.1); SGOT/AST 33 U/L (15-37); SGPT/ALT 60 U/L (13-61); SODIUM 139 mmol/L (136-145); TOT PROT 6.3 g/dl (6.4-8.2)
--- NOTE | 2019-06-23 21:06 | CON.OBG ---
Consult Consult Specialty:: PATIENT SERVICE SPECIALIST Referred by:: ER Reason for Consultation:: Recently PP with SOB in the office, sent for ER evaluation - History of Present Illness Chief Complaint: Progressivly worsening SOB History of Present Illness: 38yo P1 s/p Primary c/section for PEC/Sever IUGR at term 06/17/19, POD # 7 She had uncomplicated hospital course and went home on Labetalol 200mg BID POD # 4, Sunday She spent Sunday at home, noted pain well controlled with Motrin alternating with Tylenol, took total ~6 pills of each, and took Labetalol PRN Up to 800mg/ day She reports feeling winded going to the bathroom Denies MERCER, visual changes, or RUQ pain She also reports back pain and lower extremity edema, which she had towards end of - History Source History Provided By: Patient, Medical Record Limitations to Obtaining History: No Limitations - Past Medical History Cardio/Vascular: Yes: Other (Preeclampsia during recent ) Heme/Onc: Yes: Other (Thalessemia) Endocrine: Yes: Other (morbid obesity) - Past Surgical History Past Surgical History: Yes: - Alcohol/Substance Use Hx Alcohol Use: No History of Substance Use: reports: None - Smoking History Smoking history: Never smoked Have you smoked in the past 12 months: No - Social History History of Recent Travel: No Home Medications - Allergies Allergies/Adverse Reactions: Allergies Allergy/AdvReac Type Severity Reaction Status Date / Time amoxicillin [From Augmentin] Allergy Unknown Hives Verified 06/17/19 08:09 clavulanic acid Allergy Unknown Hives Verified 06/17/19 08:09 [From Augmentin] doxycycline Allergy Unknown Hives Verified 06/17/19 08:09 - Home Medications Home Medications: Ambulatory Orders Aspirin [ASA -] 81 mg PO DAILY 06/13/19 Ferrous Sulfate [Feosol] 325 mg PO BID 06/13/19 Vitamins (Sjr) - 1 tab PO DAILY 06/13/19 Acetaminophen [Tylenol -] 1,000 mg PO Q6H #60 tablet 06/21/19 Ibuprofen [Motrin -] 600 mg PO QID #28 tablet 06/21/19 Labetalol HCl [Normodyne -] 200 mg PO Q6H PRN #60 tablet 06/21/19 Simethicone 80 mg PO BID #30 tab.chew 06/21/19 Review of Systems - Review of Systems Respiratory: reports: SOB, SOB on Exertion Physical Exam-GLOBAL PROGRAM DIRECTOR Vital Signs: Vital Signs Temperature 97.8 F 06/23/19 17:01 Pulse Rate 90 06/23/19 20:13 Respiratory Rate 20 06/23/19 20:13 Blood Pressure 168/98 06/23/19 20:13 O2 Sat by Pulse Oximetry (%) 98 06/23/19 20:13 Constitutional: Yes: Well Nourished, No Distress, Calm Eyes: Yes: WNL, Conjunctiva Clear HENT: Yes: WNL, Atraumatic, Normocephalic Neck: Yes: WNL, Supple, Trachea Midline Cardiovascular: Yes: WNL, Regular Rate and Rhythm Respiratory: Yes: WNL, Regular, CTA Bilaterally Gastrointestinal: Yes: WNL, Normal Bowel Sounds, Soft Renal/: Yes: CVA Tenderness - Left ....Post : Yes: Uterus firm, Uterus non-tender Breast(s): Yes: WNL Extremities: Yes: WNL Edema: LUE: 2+, LLE: 2+ Integumentary: Yes: WNL Wound/Incision: Yes: Clean/Dry Neurological: Yes: WNL, Alert, Oriented ...Motor Strength: WNL Psychiatric: Yes: WNL, Alert, Oriented Labs: CBC, BMP 06/23/19 18:40 Assessment/Plan 38yo P1 POD#7 s/p uncomplicated Primary c/section for possibly sever PEC, uneventful recovery and d/c home on anti-Hypertensive now with SOB and possibly renal failure, possibility of Cardiomyopathy can not be r/out as well as sever BPs poorly controlled with Labetalol r/out Pulmonary edema and/or Pulmonary Embolism Spiral CT currently contraindicated due to renal insufficiency Bed side Echo, EKG and CXR wnl as per ER Cardiac and Renal consults requested Admit to telemetry - Consider changing to Procardia XL 30mg for better BP control - Official cardiac Echo in am - consider 1/2 NS IVF and gentle diuretic, small doses of Lasix, when in Telemetry - repeat labs in am - DVT prophylaxis - Lovenox 40mg SQ daily
[2019-06-23 21:24] LABS: BLOOD UREA NITROGEN 77.2 mg/dL (7-18); CALCIUM 9.8 mg/dL (8.5-10.1); CREATININE 4.1 mg/dL (0.55-1.3); POTASSIUM 5.7 mmol/L (3.5-5.1)
[2019-06-23] MEDS ORDERED: LABETALOL HCL 200 MG TABLET (FP) PO ONE (21:30)
[2019-06-23] MEDS ORDERED: LABETALOL HCL 100 MG TABLET (FP) ONE (21:52)
[2019-06-23] MEDS ORDERED: DEXTROSE 50%-WATER - 25 GM/50 ML VIAL IVPUSH ONE (22:04)
[2019-06-23] MEDS ORDERED: INSULIN REGULAR HUMAN 100 UNITS/ML *VIAL IVPUSH ONE (22:04)
[2019-06-23] MEDS ORDERED: DEXTROSE 50%-WATER 25 GM/50 ML DISP.SYRIN ONE ×2 (22:10→23:25)
[2019-06-23] MEDS ORDERED: SODIUM BICARBONATE 8.4% 50 MEQ/50 ML VIAL IV ONE (22:13)
[2019-06-23] MEDS ORDERED: SODIUM CHLORIDE 0.45% 1,000 ML IV SCH (22:15)
[2019-06-23] MEDS ORDERED: SODIUM ZIRCONIUM CYCLOSILICATE (LOKELMA) 5 GM PACKET PO SCH (22:25)
[2019-06-23] MEDS ORDERED: CALCIUM GLUCONATE 10% - 1,000 MG/10 ML VIAL ONE (23:23)
[2019-06-23] MEDS ORDERED: LORazepam 2 MG/ML SDV VIAL ONE (23:39)
--- NOTE | 2019-06-24 01:27 | HP ---
CHIEF COMPLAINT: SOB PCP: Unknown HISTORY OF PRESENT ILLNESS: 38 y/o F s/p C section at 34 weeks gestion for pre-eclampsia 6 days ago who presented to the ED because of shortness of breath and persistent elevated blood pressure. As per pt, her blood pressure never returned to baseline after delivery resulting in her returning home with a prescription for labetolol 200mg as needed. Despite labetolol, patient explained that she remained hypertensive at home with her last three readings being 181/101,172/102,165/ 104. However, 3 days ago, she noted that she was becoming short of breath initially on exertion then eventually to the point of being unable to lie flat. She also noted worsening swelling of her feet that has been present since her . At that point pt went to her flame burner who recommended that she goes to the ED. Pt denied any headache, dizziness, nausea, vomiting, palpitations, chest nor change in urination or bowel movement. Pt endorsed taking ibuprofen and tylenol daily since childbirth to reduce pain from c section wound. ER course was notable for: (1)CBC for mild leukocytosis, CMP significant for LUIS E, UA, CXR (2) Dr Isabel who was consulted and rec: 1amp of dextrose, 10 unit of insulin, 1amp of Hco3, lokelma,cagluconate (3) albuterol, 1/2 NS@100 Recent Travel: none PAST MEDICAL HISTORY: HLD PAST SURGICAL HISTORY: laparascopy (pt doesnt recall why but she says she had fluid in her uterus) FAMILY HISTORY: No hx of HTN Social History: Smoking:denies Alcohol:denies Drugs: denies Allergies amoxicillin [From Augmentin] Allergy (Unknown, Verified 06/17/19 08:09) Hives clavulanic acid [From Augmentin] Allergy (Unknown, Verified 06/17/19 08:09) Hives doxycycline Allergy (Unknown, Verified 06/17/19 08:09) Hives HOME MEDICATIONS: Home Medications Medication Instructions Recorded Aspirin [ASA -] 81 mg PO DAILY 06/13/19 Ferrous Sulfate [Feosol] 325 mg PO BID 06/13/19 Vitamins (Sjr) - 1 tab PO DAILY 06/13/19 Acetaminophen [Tylenol -] 1,000 mg PO Q6H #60 tablet 06/21/19 Ibuprofen [Motrin -] 600 mg PO QID #28 tablet 06/21/19 Labetalol HCl [Normodyne -] 200 mg PO Q6H PRN #60 tablet 06/21/19 Simethicone 80 mg PO BID #30 tab.chew 06/21/19 REVIEW OF SYSTEMS CONSTITUTIONAL: diaphoresis, generalized weakness, malaise Absent: fever, chills , loss of appetite, weight change HEENT: visual changes Absent: rhinorrhea, nasal congestion, throat pain, throat swelling, difficulty swallowing, mouth swelling, ear pain, eye pain, CARDIOVASCULAR: Absent: chest pain, syncope, palpitations, irregular heart rate, lightheadedness , peripheral edema RESPIRATORY: shortness of breath, dyspnea with exertion, orthopnea Absent: cough, wheezing, stridor, hemoptysis GASTROINTESTINAL: Absent: abdominal pain, abdominal distension, nausea, vomiting, diarrhea, constipation, melena, hematochezia GENITOURINARY: Absent: dysuria, frequency, urgency, hesitancy, hematuria, flank pain, genital pain MUSCULOSKELETAL: Absent: myalgia, arthralgia, joint swelling, back pain, neck pain SKIN: Absent: rash, itching, pallor HEMATOLOGIC/IMMUNOLOGIC: Absent: easy bleeding, easy bruising, lymphadenopathy, frequent infections ENDOCRINE: Absent: unexplained weight gain, unexplained weight loss, heat intolerance, cold intolerance NEUROLOGIC: dizziness Absent: headache, focal weakness or paresthesias, unsteady gait, seizure, mental status changes, bladder or bowel incontinence PSYCHIATRIC: Absent: anxiety, depression, suicidal or homicidal ideation, hallucinations. PHYSICAL EXAMINATION Vital Signs - 24 hr 06/23/19 06/23/19 06/23/19 17:01 20:13 22:01 Temperature 97.8 F Pulse Rate 76 Pulse Rate [ 90 83 Apical] Respiratory 18 20 24 H Rate Blood Pressure 163/83 Blood Pressure 168/98 170/89 [Left Arm] O2 Sat by Pulse 97 98 98 Oximetry (%) 06/23/19 23:54 Temperature Pulse Rate Pulse Rate [ 88 Apical] Respiratory 18 Rate Blood Pressure Blood Pressure 143/90 [Left Arm] O2 Sat by Pulse 98 Oximetry (%) GENERAL: Awake, alert, and fully oriented, in mild distress. HEAD: Normal with no signs of trauma. EYES: Pupils equal, round and reactive to light, extraocular movements intact, sclera anicteric, conjunctiva clear. No lid lag. EARS, NOSE, THROAT: oropharynx clear without exudates. Moist mucous membranes. NECK: Normal range of motion, supple without lymphadenopathy, JVD, or masses. LUNGS: Breath sounds equal, clear to auscultation bilaterally. No wheezes, and no crackles. No accessory muscle use. HEART: Regular rate and rhythm, normal S1 and S2 without murmur, rub or gallop. ABDOMEN: Soft, nontender, mild distended, normoactive bowel sounds, no guarding , no rebound, no masses. No hepatomegaly or splenomegaly. MUSCULOSKELETAL: Normal range of motion at all joints. No bony deformities or tenderness. No CVA tenderness. UPPER EXTREMITIES: 2+ pulses, warm, well-perfused. No cyanosis. No clubbing. No peripheral edema. LOWER EXTREMITIES: 2+ pulses, warm, well-perfused. No calf tenderness. 2+ edema. PSYCHIATRIC: Cooperative. Good eye contact. Appropriate mood and affect. SKIN: Warm, dry, normal turgor, no rashes or lesions noted, normal capillary refill. Laboratory Results - last 24 hr 06/23/19 06/23/19 06/23/19 18:00 18:00 18:00 WBC RBC Hgb Hct MCV MCH MCHC RDW Plt Count MPV Absolute Neuts (auto) Neutrophils % Lymphocytes % Monocytes % Eosinophils % Basophils % Nucleated RBC % PT with INR 11.40 Cancelled INR 0.97 Cancelled PTT (Actin FS) 26.6 Sodium Potassium Chloride Carbon Dioxide Anion Gap BUN Creatinine Est GFR (CKD-EPI)AfAm Est GFR (CKD-EPI)NonAf POC Glucometer Random Glucose Calcium Magnesium Total Bilirubin AST ALT Alkaline Phosphatase LD Total Creatine Kinase Troponin I B-Natriuretic Peptide Total Protein Albumin Urine Color Yellow Urine Appearance Clear Urine pH 5.5 Ur Specific [place] 1.008 L Urine Protein Negative Urine Glucose (UA) Negative Urine Ketones Negative Urine Blood 2+ H Urine Nitrite Negative Urine Bilirubin Negative Urine Urobilinogen 0.2 Ur Leukocyte Esterase Trace Urine WBC (Auto) 3 Urine RBC (Auto) 2 Urine Casts (Auto) 1 U Epithel Cells (Auto) 1.6 Urine Bacteria (Auto) 10.1 06/23/19 06/23/19 06/23/19 18:40 18:40 18:40 WBC 10.3 H RBC 3.52 L Hgb 9.2 L Hct 28.5 L MCV 80.7 MCH 26.0 MCHC 32.2 RDW 16.2 H Plt Count 222 D MPV 9.5 Absolute Neuts (auto) 8.0 Neutrophils % 77.7 Lymphocytes % 9.7 Monocytes % 8.8 Eosinophils % 3.3 D Basophils % 0.5 Nucleated RBC % 0 PT with INR INR PTT (Actin FS) Sodium 139 Potassium 5.9 H Chloride 107 Carbon Dioxide 22 Anion Gap 10 BUN 72.4 H Creatinine 4.4 H Est GFR (CKD-EPI)AfAm 13.90 Est GFR (CKD-EPI)NonAf 11.99 POC Glucometer Random Glucose 74 Calcium 9.5 Magnesium 2.6 H Total Bilirubin 0.2 AST 33 ALT 60 Alkaline Phosphatase 90 LD Total 419 H Creatine Kinase 114 Troponin I < 0.02 B-Natriuretic Peptide 1642.7 H Total Protein 6.3 L Albumin 2.6 L Urine Color Urine Appearance Urine pH Ur Specific [place] Urine Protein Urine Glucose (UA) Urine Ketones Urine Blood Urine Nitrite Urine Bilirubin Urine Urobilinogen Ur Leukocyte Esterase Urine WBC (Auto) Urine RBC (Auto) Urine Casts (Auto) U Epithel Cells (Auto) Urine Bacteria (Auto) 06/23/19 06/23/19 20:25 23:24 WBC RBC Hgb Hct MCV MCH MCHC RDW Plt Count MPV Absolute Neuts (auto) Neutrophils % Lymphocytes % Monocytes % Eosinophils % Basophils % Nucleated RBC % PT with INR INR PTT (Actin FS) Sodium 142 Potassium 5.7 H Chloride 110 H Carbon Dioxide 21 Anion Gap 11 BUN 77.2 H Creatinine 4.1 H Est GFR (CKD-EPI)AfAm 15.14 Est GFR (CKD-EPI)NonAf 13.06 POC Glucometer 36 Random Glucose 81 Calcium 9.8 Magnesium Total Bilirubin AST ALT Alkaline Phosphatase LD Total Creatine Kinase Troponin I B-Natriuretic Peptide Total Protein Albumin Urine Color Urine Appearance Urine pH Ur Specific [place] Urine Protein Urine Glucose (UA) Urine Ketones Urine Blood Urine Nitrite Urine Bilirubin Urine Urobilinogen Ur Leukocyte Esterase Urine WBC (Auto) Urine RBC (Auto) Urine Casts (Auto) U Epithel Cells (Auto) Urine Bacteria (Auto) ASSESSMENT/PLAN: 38 y/o F s/p C section at 34 weeks gestion for pre-eclampsia 6 days ago who presented to the ED because of shortness of breath and persistent elevated blood pressure admitted to r/o cardiomyopathy and for hypertensive urgency SOB 2/2 Hypertensive urgency/ poss cardiomyopathy/ DVT/PE cont BP control with labetolol 200 Q6h. Lasix 40 BID. daily weights. I&Os albuterol PRN CXR echocardiography Cardiology consult- Dr Monroe [employer] Design Layout Drafter consult-Dr Armenta with rec to repeat BMP in am, consider changing to Procardia XL 30mg for better BP control,consider 1/2 NS IVF and gentle diuretic, small doses of Lasix, when in Telemetry Duplex U/S of the lower Extremities to r/o DVT/PE patient current sat is at 94%. NC 2L added Spiral CT c/i due to LUIS E LUI SE 2/2 NSAID use/cardiomyopathy BUN 72.4 and Cr 4.4 and potassium 5.9 on admission. repeat s/p tx BUN 77.2/4.1. Potassium 5.7 Nephrology consult-Dr Isabel rec: 1amp of dextrose 10 unit of insulin 1amp of Hco3 lokelma calcium gluconate Ultrasound of the kidneys and bladder urine EOS, Urine electrolytes to r/o acute intestitial nephritis DVT lovenox 40 Sq Visit type - Emergency Visit Emergency Visit: Yes ED Registration Date: 06/23/19 Care time: The patient presented to the Emergency Department on the above date and was hospitalized for further evaluation of their emergent condition. - New Patient This patient is new to me today: Yes Date on this admission: 06/24/19 - Critical Care Critical Care patient: No ATTENDING PHYSICIAN STATEMENT I saw and evaluated the patient. I reviewed the resident's note and discussed the case with the resident. I agree with the resident's findings and plan as documented. SUBJECTIVE: OBJECTIVE: ASSESSMENT AND PLAN:
--- NOTE | 2019-06-24 01:28 | PN ---
Teaching Attending Note Name of Resident: Ashley Galindo ATTENDING PHYSICIAN STATEMENT I saw and evaluated the patient. I reviewed the resident's note and discussed the case with the resident. I agree with the resident's findings and plan as documented. SUBJECTIVE: 38 y/o F hx of preclampsia 7 days s/p presenting with 3 days worsening of shortness of breath. She began having sob with exertion relieved with rest. Also developed orthopnea. Sent in by her coffee break attendant Dr. Rajput for evaluation, She has not had any associated chest pain or cough. She was placed on labetalol by her PCP 200mg q 6hrs as needed for elevated blood pressure. OBJECTIVE: Last Vital Signs Temp Pulse Resp BP Pulse Ox 97.8 F 88 18 143/90 98 06/23/19 17:01 06/23/19 23:54 06/23/19 23:54 06/23/19 23:54 06/23/19 23:54 GENERAL: Well developed, well nourished. Awake and alert. No acute distress. HEENT: Normocephalic, atraumatic. PERRLA, EOMI. No conjunctival pallor. Sclera are non- icteric. Moist mucous membranes. Oropharynx is clear. NECK: Supple. Full ROM. No JVD. Carotid pulses 2+ and symmetric, without bruits. No thyromegaly. No lymphadenopathy. CARDIOVASCULAR: Regular rate and rhythm. No murmurs, rubs, or gallops. Distal pulses are 2+ and symmetric. PULMONARY: No evidence of respiratory distress. Lungs clear to auscultation bilaterally. No wheezing, rales or rhonchi. ABDOMINAL: Soft. Non-tender. Non-distended. No rebound or guarding. No organomegaly. Normoactive bowel sounds. MUSCULOSKELETAL Normal range of motion at all joints. No bony deformities or tenderness. No CVA tenderness. EXTREMITIES: Extensive pitting edema's bilaterally up to knees PSYCHIATRIC: Cooperative. Good eye contact. Appropriate mood and affect. Abnormal Lab Results 06/23/19 06/23/19 06/23/19 18:00 18:40 18:40 WBC 10.3 H RBC 3.52 L Hgb 9.2 L Hct 28.5 L RDW 16.2 H Potassium 5.9 H Chloride BUN 72.4 H Creatinine 4.4 H Magnesium LD Total B-Natriuretic Peptide 1642.7 H Total Protein 6.3 L Albumin 2.6 L Ur Specific [place] 1.008 L Urine Blood 2+ H 06/23/19 06/23/19 18:40 20:25 WBC RBC Hgb Hct RDW Potassium 5.7 H Chloride 110 H BUN 77.2 H Creatinine 4.1 H Magnesium 2.6 H LD Total 419 H B-Natriuretic Peptide Total Protein Albumin Ur Specific [place] Urine Blood Imaging reviewed, EKG reviewed ASSESSMENT AND PLAN 38-year-old woman postop day #7 status post , presenting with shortness of breath. Should rule out underlying cardiomyopathy as she was found to have some pedal edema and is noted to have elevated BNP. Appears to be fluid overloaded. UA did not show any proteinuria and this is less consistent with preeclampsia although patient does have significant hypertension.I suspect her LUIS E to be NSAID induced nephropathy as she had just noted to be taking large doses of Motrin postop. Less likely to be hypertensive emergency although hypertension may be contributing factor to her kidney injury. Mild hyperkalemia may be secondary to acute kidney injury and transient renal dysfunction. Admit to telemetry in light of hyperkalemia Transthoracic echo Urine lites Renal sonogram Monitor input and output Daily weights Furosemide from 40 mg stat and then twice daily Trend renal markers and a repeat potassium MOLDER [employer]AT follow-up Labetalol 200 mg twice daily for hypertension Avoid nephrotoxic agents including NSAIDs DVT prophylaxis
[2019-06-24] MEDS ORDERED: LABETALOL HCL 200 MG TABLET (FP) PO PRN (05:11)
[2019-06-24 06:02] LABS: BASO % 0.4 % (0-2.0); EOS % 2.6 % (0-4.5); HEMATOCRIT 29.1 % (32.4-45.2); HEMOGLOBIN 9.7 GM/dL (10.7-15.3); LYMPH % 6.8 % (8-40); MCH 26.2 pg (25.7-33.7); MCHC 33.3 g/dl (32.0-36.0); MEAN CELL VOLUME 78.8 fl (80-96); MEAN PLT VOLUME 8.7 fl (7.5-11.1); MONO % 9.4 % (3.8-10.2); NEUT % 80.8 % (42.8-82.8); PLATELET COUNT 212 K/MM3 (134-434); RBC 3.69 M/mm3 (3.60-5.2); RDW 16.6 % (11.6-15.6); WHITE BLOOD COUNT 10.2 K/mm3 (4.0-10.0)
[2019-06-24 06:25] LABS: ALBUMIN 2.7 g/dl (3.4-5.0); BILIRUBIN,TOTAL 0.3 mg/dL (0.2-1); BLOOD UREA NITROGEN 72.1 mg/dL (7-18); CALCIUM 10.3 mg/dL (8.5-10.1); CREATININE 3.3 mg/dL (0.55-1.3); MAGNESIUM 2.1 mg/dL (1.8-2.4); PHOSPHOROUS 7.8 mg/dL (2.5-4.9); POTASSIUM 5.2 mmol/L (3.5-5.1); TOT PROT 6.7 g/dl (6.4-8.2)
[2019-06-24] MEDS: FUROSEMIDE 40 MG/4 ML INJECTABLE VIAL IVPUSH SCH ×3 (06:29→16:26)
[2019-06-24] MEDS ORDERED: LABETALOL HCL 200 MG TABLET (FP) PO ONE (08:47)
[2019-06-24] MEDS: ACETAMINOPHEN 325 MG TABLET (FP) PO PRN ×3 (09:14→23:04)
[2019-06-24] MEDS ORDERED: SODIUM ZIRCONIUM CYCLOSILICATE (LOKELMA) 5 GM PACKET PO SCH (10:00)
[2019-06-24] MEDS ORDERED: ENOXAPARIN NA (PORCINE) 40 MG/0.4 ML DISP.SYRIN SQ SCH (10:00)
[2019-06-24] MEDS ORDERED: NIFEdipine E.R. 30 MG TABLET (FP) PO SCH (10:00)
--- NOTE | 2019-06-24 10:19 | CONSULT ---
Consultation: REQUESTING PROVIDER: Dr. Galindo CONSULT REQUEST: We have been asked to medically evaluate this patient for Acute renal Failure . HISTORY OF PRESENT ILLNESS: Pt. is a 38 y.o. F w/ PMHx. of Anemia ( thalassemia minor) , Morbid Obesity s/p 1 week ago presenting for elevated blood pressure and admitted for Acute renal Failure. Pt. denies being hypertensive during until the final days prior to delivery. Pt. BP hovered at 130s/80s and finally during the day of the was 140/90. Pt. has been hypertensive since delivery and has been on Labetalol. Pt. states that she was hypertensive at home even after taking the Labetalol (as much as 800mg/day) and was referred to the ED by her Germination Worker. Pt. states that she has been taking Ibuprofen and Tylenol everyday since her to manage her pain. Pt. states that since hospital admission she has had improved breathing and that her swelling has improved as well. Pt. endorses head ache that begun ealier this AM. Pt. denies any flank pain, chest pain, or shortness of breath currently. Pt. endorses clear yellow colored urine and denies any changes in her bowel habits, fevers, chills, nausea or vomiting. Pt. states she found out about thalassemia only during this but had previously known that she was anemic. Family Hx: Positive for HTN Social Hx: Denies any toxic habits, Lives at home with REVIEW OF SYSTEMS: CONSTITUTIONAL: Absent: fever, chills, diaphoresis, generalized weakness, malaise, loss of appetite, weight change HEENT: Absent: rhinorrhea, nasal congestion, throat pain, throat swelling, difficulty swallowing, mouth swelling, ear pain, eye pain, visual changes CARDIOVASCULAR: peripheral edema Absent: chest pain, syncope, palpitations, irregular heart rate, lightheadedness , RESPIRATORY: Absent: cough, shortness of breath, dyspnea with exertion, orthopnea, wheezing, stridor, hemoptysis GASTROINTESTINAL: Absent: abdominal pain, abdominal distension, nausea, vomiting, diarrhea, constipation, melena, hematochezia GENITOURINARY: Absent: dysuria, frequency, urgency, hesitancy, hematuria, flank pain, genital pain MUSCULOSKELETAL: Absent: myalgia, arthralgia, joint swelling, back pain, neck pain SKIN: Absent: rash, itching, pallor HEMATOLOGIC/IMMUNOLOGIC: Absent: easy bleeding, easy bruising, lymphadenopathy, frequent infections ENDOCRINE: thirst Absent: unexplained weight gain, unexplained weight loss, heat intolerance, cold intolerance NEUROLOGIC: Absent: headache, focal weakness or paresthesias, dizziness, unsteady gait, seizure, mental status changes, bladder or bowel incontinence PSYCHIATRIC: Absent: anxiety, depression, suicidal or homicidal ideation, hallucinations. PHYSICAL EXAMINATION Vital Signs - 24 hr 06/23/19 06/23/19 06/23/19 17:01 20:13 22:01 Temperature 97.8 F Pulse Rate 76 Pulse Rate [ 90 83 Apical] Respiratory 18 20 24 H Rate Blood Pressure 163/83 Blood Pressure 168/98 170/89 [Left Arm] O2 Sat by Pulse 97 98 98 Oximetry (%) 06/23/19 06/23/19 06/24/19 23:09 23:54 01:00 Temperature 97.7 F Pulse Rate 85 Pulse Rate [ 88 Apical] Respiratory 18 20 Rate Blood Pressure 167/102 H Blood Pressure 143/90 [Left Arm] O2 Sat by Pulse 98 98 Oximetry (%) 06/24/19 06/24/19 04:09 08:31 Temperature 99.0 F 97.5 F L Pulse Rate 83 80 Pulse Rate [ Apical] Respiratory 20 18 Rate Blood Pressure 167/96 161/118 H Blood Pressure [Left Arm] O2 Sat by Pulse 98 Oximetry (%) GENERAL: Awake, alert, and fully oriented, in no acute distress. HEAD: Normal with no signs of trauma. EYES: Pupils equal, round and reactive to light, extraocular movements intact, sclera anicteric, conjunctiva clear. EARS, NOSE, THROAT: Ears normal, nares patent, oropharynx clear without exudates. Moist mucous membranes. NECK: Normal range of motion, supple without lymphadenopathy, JVD, or masses. LUNGS: Breath sounds equal, clear to auscultation bilaterally. No wheezes, and no crackles. No accessory muscle use. HEART: Regular rate and rhythm, normal S1 and S2 MUSCULOSKELETAL: No bony deformities or tenderness. No CVA tenderness. UPPER EXTREMITIES: 2+ pulses, warm, well-perfused. No cyanosis. No clubbing. Cap refill <2 seconds. No peripheral edema. LOWER EXTREMITIES: 1+ dorsal pedal pulses, warm, well-perfused. No calf tenderness. 3+ edema. NEUROLOGICAL: Cranial nerves II-XII intact. Normal speech. Gait not observed PSYCHIATRIC: Cooperative. Good eye contact. Appropriate mood and affect. SKIN: Warm, dry, no lesions noted Laboratory Results - last 24 hr 06/23/19 06/23/19 06/23/19 18:00 18:00 18:00 WBC RBC Hgb Hct MCV MCH MCHC RDW Plt Count MPV Absolute Neuts (auto) Neutrophils % Lymphocytes % Monocytes % Eosinophils % Basophils % Nucleated RBC % PT with INR 11.40 Cancelled INR 0.97 Cancelled PTT (Actin FS) 26.6 Sodium Potassium Chloride Carbon Dioxide Anion Gap BUN Creatinine Est GFR (CKD-EPI)AfAm Est GFR (CKD-EPI)NonAf POC Glucometer Random Glucose Hemoglobin A1c % Calcium Phosphorus Magnesium Total Bilirubin AST ALT Alkaline Phosphatase LD Total Creatine Kinase Troponin I B-Natriuretic Peptide Total Protein Albumin Triglycerides Cholesterol Total LDL Cholesterol HDL Cholesterol Urine Color Yellow Urine Appearance Clear Urine pH 5.5 Ur Specific [place] 1.008 L Urine Protein Negative Urine Glucose (UA) Negative Urine Ketones Negative Urine Blood 2+ H Urine Nitrite Negative Urine Bilirubin Negative Urine Urobilinogen 0.2 Ur Leukocyte Esterase Trace Urine WBC (Auto) 3 Urine RBC (Auto) 2 Urine Casts (Auto) 1 U Epithel Cells (Auto) 1.6 Urine Bacteria (Auto) 10.1 06/23/19 06/23/19 06/23/19 18:40 18:40 18:40 WBC 10.3 H RBC 3.52 L Hgb 9.2 L Hct 28.5 L MCV 80.7 MCH 26.0 MCHC 32.2 RDW 16.2 H Plt Count 222 D MPV 9.5 Absolute Neuts (auto) 8.0 Neutrophils % 77.7 Lymphocytes % 9.7 Monocytes % 8.8 Eosinophils % 3.3 D Basophils % 0.5 Nucleated RBC % 0 PT with INR INR PTT (Actin FS) Sodium 139 Potassium 5.9 H Chloride 107 Carbon Dioxide 22 Anion Gap 10 BUN 72.4 H Creatinine 4.4 H Est GFR (CKD-EPI)AfAm 13.90 Est GFR (CKD-EPI)NonAf 11.99 POC Glucometer Random Glucose 74 Hemoglobin A1c % Calcium 9.5 Phosphorus Magnesium 2.6 H Total Bilirubin 0.2 AST 33 ALT 60 Alkaline Phosphatase 90 LD Total 419 H Creatine Kinase 114 Troponin I < 0.02 B-Natriuretic Peptide 1642.7 H Total Protein 6.3 L Albumin 2.6 L Triglycerides Cholesterol Total LDL Cholesterol HDL Cholesterol Urine Color Urine Appearance Urine pH Ur Specific [place] Urine Protein Urine Glucose (UA) Urine Ketones Urine Blood Urine Nitrite Urine Bilirubin Urine Urobilinogen Ur Leukocyte Esterase Urine WBC (Auto) Urine RBC (Auto) Urine Casts (Auto) U Epithel Cells (Auto) Urine Bacteria (Auto) 06/23/19 06/23/19 06/24/19 20:25 23:24 03:00 WBC RBC Hgb Hct MCV MCH MCHC RDW Plt Count MPV Absolute Neuts (auto) Neutrophils % Lymphocytes % Monocytes % Eosinophils % Basophils % Nucleated RBC % PT with INR INR PTT (Actin FS) Sodium 142 Cancelled Potassium 5.7 H Cancelled Chloride 110 H Cancelled Carbon Dioxide 21 Cancelled Anion Gap 11 Cancelled BUN 77.2 H Cancelled Creatinine 4.1 H Cancelled Est GFR (CKD-EPI)AfAm 15.14 Cancelled Est GFR (CKD-EPI)NonAf 13.06 Cancelled POC Glucometer 36 Random Glucose 81 Cancelled Hemoglobin A1c % Calcium 9.8 Cancelled Phosphorus Magnesium Total Bilirubin AST ALT Alkaline Phosphatase LD Total Creatine Kinase Troponin I B-Natriuretic Peptide Total Protein Albumin Triglycerides Cholesterol Total LDL Cholesterol HDL Cholesterol Urine Color Urine Appearance Urine pH Ur Specific [place] Urine Protein Urine Glucose (UA) Urine Ketones Urine Blood Urine Nitrite Urine Bilirubin Urine Urobilinogen Ur Leukocyte Esterase Urine WBC (Auto) Urine RBC (Auto) Urine Casts (Auto) U Epithel Cells (Auto) Urine Bacteria (Auto) 06/24/19 06/24/19 06/24/19 05:40 05:40 05:40 WBC 10.2 H RBC 3.69 Hgb 9.7 L Hct 29.1 L MCV 78.8 L MCH 26.2 MCHC 33.3 RDW 16.6 H Plt Count 212 MPV 8.7 Absolute Neuts (auto) 8.2 H Neutrophils % 80.8 Lymphocytes % 6.8 L D Monocytes % 9.4 Eosinophils % 2.6 Basophils % 0.4 Nucleated RBC % 0 PT with INR INR PTT (Actin FS) Sodium 141 Potassium 5.2 H Chloride 111 H Carbon Dioxide 21 Anion Gap 9 BUN 72.1 H Creatinine 3.3 H Est GFR (CKD-EPI)AfAm 19.68 Est GFR (CKD-EPI)NonAf 16.98 POC Glucometer Random Glucose 89 Hemoglobin A1c % 4.3 Calcium 10.3 H Phosphorus 7.8 H Magnesium 2.1 Total Bilirubin 0.3 AST 31 ALT 66 H Alkaline Phosphatase 87 LD Total Creatine Kinase Troponin I B-Natriuretic Peptide Total Protein 6.7 Albumin 2.7 L Triglycerides 93 Cholesterol 270 H Total LDL Cholesterol 151 H HDL Cholesterol 93 H Urine Color Urine Appearance Urine pH Ur Specific [place] Urine Protein Urine Glucose (UA) Urine Ketones Urine Blood Urine Nitrite Urine Bilirubin Urine Urobilinogen Ur Leukocyte Esterase Urine WBC (Auto) Urine RBC (Auto) Urine Casts (Auto) U Epithel Cells (Auto) Urine Bacteria (Auto) Active Medications Current Medications Acetaminophen (Tylenol -) 650 mg PO Q6H PRN PRN Reason: PAIN LEVEL 1-5 Last Admin: 06/24/19 09:14 Dose: 650 mg Enoxaparin Sodium (Lovenox -) 40 mg SQ DAILY [facility] Last Admin: 06/24/19 09:07 Dose: 40 mg Furosemide (Lasix Injection -) 40 mg IVPUSH BIDLASIX [facility] Last Admin: 06/24/19 06:29 Dose: 40 mg Labetalol HCl (Normodyne -) 200 mg PO BID [facility] ASSESSMENT/PLAN: Pt. is a 38 y.o. F s/p 1 week ago @ 34 weeks gestation (2/2 IUGR 2/2 Pre-ecclampsia) presenting for elevated blood pressure and admitted for Acute renal Failure. #Hypertensive Emergency with Headache and Lower Extremity edema likely 2/2 Pre- ecclampsia c/w Lasix IVP 40mg BID c/w Labetalol 200mg BID will start Procardia 30mg Daily and uptitrate as needed for blood pressure control. c/w Telemetry monitoring Echocardiogram: EF 60%, mild eccentric MR and mild Pulmonary HTN: 37 mmHg Elevate feet when resting in chair or bed #Acute Renal Failure w/ Hyperkalemia c/w Lasix 40mg BID Cr. resolving 4.1 on admission now 3.3 Renal US shows smaller echogenic R. Kidney. No Hydronephrosis. Avoid Nephrotoxic agents, avoid NSAIDs Per Dr. Johnson pt. had 1,700mg of protein in 24 hour urine collection, however UA on this admission did not have any protein f/u SPEP and UPEP Pt. received 1amp of dextrose, 10 unit of insulin,1amp of Hco3, lokelma, cagluconate in ED; potassium decreased from 5.9 to 5.2 currently, will continue to monitor. Peaked T waves noted on EKG #DVT Ppx. Lovenox 40mg --> will switch to Hep SQ TID Dispo: We will continue to follow the patient. Thank you for this consultative opportunity. Visit type - Emergency Visit Emergency Visit: Yes ED Registration Date: 06/23/19 Care time: The patient presented to the Emergency Department on the above date and was hospitalized for further evaluation of their emergent condition. - New Patient This patient is new to me today: Yes Date on this admission: 06/24/19 - Critical Care Critical Care patient: No ATTENDING PHYSICIAN STATEMENT I saw and evaluated the patient. I reviewed the resident's note and discussed the case with the resident. I agree with the resident's findings and plan as documented. SUBJECTIVE: OBJECTIVE: ASSESSMENT AND PLAN:
--- NOTE | 2019-06-24 10:23 | PN ---
Post Progress Note - Subjective Subjective: Feels improved No SOB mild MERCER, no visual changes or RUQ pain Post Day: 8 Type of Delivery: Primary C/S Vital Signs: Vital Signs Temperature 97.5 F L 06/24/19 08:31 Pulse Rate 80 06/24/19 08:31 Respiratory Rate 18 06/24/19 08:31 Blood Pressure 161/118 H 06/24/19 08:31 O2 Sat by Pulse Oximetry (%) 98 06/24/19 08:31 Breast Exam: Yes: Soft Uterus: Yes: Fundus Firm Incision: Yes: Sutures intact Abdomen/GI: Yes: Abdomen soft Lochia: Yes: Rubra Lochia, amount: Small Extremities: Yes: Calves non-tender Activity: Ambulating - Labs Labs: CBC WBC 10.2 K/mm3 (4.0-10.0) H 06/24/19 05:40 RBC 3.69 M/mm3 (3.60-5.2) 06/24/19 05:40 Hgb 9.7 GM/dL (10.7-15.3) L 06/24/19 05:40 Hct 29.1 % (32.4-45.2) L 06/24/19 05:40 MCV 78.8 fl (80-96) L 06/24/19 05:40 MCH 26.2 pg (25.7-33.7) 06/24/19 05:40 MCHC 33.3 g/dl (32.0-36.0) 06/24/19 05:40 RDW 16.6 % (11.6-15.6) H 06/24/19 05:40 Plt Count 212 K/MM3 (134-434) 06/24/19 05:40 MPV 8.7 fl (7.5-11.1) 06/24/19 05:40 Absolute Neuts (auto) 8.2 K/mm3 (1.5-8.0) H 06/24/19 05:40 Neutrophils % 80.8 % (42.8-82.8) 06/24/19 05:40 Lymphocytes % 6.8 % (8-40) L D 06/24/19 05:40 Monocytes % 9.4 % (3.8-10.2) 06/24/19 05:40 Eosinophils % 2.6 % (0-4.5) 06/24/19 05:40 Basophils % 0.4 % (0-2.0) 06/24/19 05:40 Nucleated RBC % 0 % (0-0) 06/24/19 05:40 Assessment/Plan 38yo P1 POD#7 s/p uncomplicated Primary c/section for possibly sever PEC, uneventful recovery and d/c home on anti-Hypertensive now with SOB and renal failure, possibility of Cardiomyopathy can not be r/out Will follow Cardiac Echo Likely fluid overloaded with sever PEC affecting kidney function Improved breathing, overall feels better Sever BPs poorly controlled with Labetalol - Consider changing to Procardia XL 30mg for better BP control - Official cardiac Echo in am - continue Lasix - DVT prophylaxis - Lovenox 40mg SQ daily
[2019-06-24] MEDS: LABETALOL HCL 200 MG TABLET (FP) PO SCH ×2 (11:18→22:10)
[2019-06-24] MEDS ORDERED: NIFEdipine E.R. 30 MG TABLET (FP) PO ONE (11:54)
--- NOTE | 2019-06-24 12:10 | EKG ---
Test Reason : Blood Pressure : / mmHG Vent. Rate : 074 BPM Atrial Rate : 074 BPM P-R Int : 154 ms QRS Dur : 074 ms QT Int : 354 ms P-R-T Axes : 079 078 047 degrees QTc Int : 392 ms NORMAL SINUS RHYTHM POSSIBLE LEFT ATRIAL ENLARGEMENT CANNOT RULE OUT ANTERIOR INFARCT , AGE UNDETERMINED ABNORMAL ECG NO PREVIOUS ECGS AVAILABLE Confirmed by Phong Grady MD ([id number]) on 06/24/2019 12:09:48 PM Referred By: Confirmed By:Phong Grady MD
--- NOTE | 2019-06-24 13:06 | ECHO ---
Version: 1 Name: HORTENSIA MICHAUD Exam: Adult Echocardiogram Study Date: 06/24/2019, 9:59 AM Age: 38 Years MMode/2D Measurements & Calculations IVSd: 0.94 cm LVIDs: 2.7 cm LVIDd: 4.3 cm LVPWd: 1.01 cm LVOT diam: 1.75 cm Ao root diam: 2.41 cm LA dimension: 3.2 cm Doppler Measurements & Calculations MV E max kit: 86.4 cm/sec Med E/e': 11.8 MV A max kit: 48.9 cm/sec Med Peak E' Kit: 7.3 cm/sec MV E/A: 1.77 Lat E/e': 9.0 Lat Peak E' Kit: 9.7 cm/sec Ao max P.5 mmHg Ao V2 max: 136.5 cm/sec TR max kit: 282.3 cm/sec TR max P.9 mmHg Left Ventricle The left ventricular size, thickness and function are normal. Ejection Fraction = 60%. Left Ventricu lar Filling pattern is normal for age. Right Ventricle The right ventricle is normal in size and function. Atria Normal left and right atrial size and function. Mitral Valve The mitral valve is grossly normal. Mild eccentric mitral regurgitation. Tricuspid Valve The tricuspid valve is not well visualized, but is grossly normal. There is mild tricuspid regurgita tion. There is mild pulmonary hypertension. Right ventricular systolic pressure is elevated at 37 mmhg. As suming the RA pressure is 5 mmHg. Aortic Valve The aortic valve is normal in structure and function. Pulmonic Valve The pulmonic valve is not well seen, but is grossly normal. Great Vessels The aortic root is normal size. Pericardium/Pleura There is no pericardial effusion. Summary Statements The left ventricular size, thickness and function are normal. Ejection Fraction = 60%. The right ventricle is normal in size and function. Normal left and right atrial size and function. The mitral valve is grossly normal. Mild eccentric mitral regurgitation. The aortic valve is normal in structure and function. There is mild pulmonary hypertension. Right ventricular systolic pressure is elevated at 37 mmhg. MD Lisbet Valdivia06/24/2019, 12:06 PM Ordering Physician: Dallas Soto Referring Physician: DALLAS SOTO Performed By: Jade Kaur
--- NOTE | 2019-06-24 13:15 | PN ---
Physical Exam: SUBJECTIVE: Patient seen and examined. No acute events overnight. OBJECTIVE: Vital Signs Period Temp Pulse Resp BP Sys/Ruth Pulse Ox Last 24 Hr 97.5 F-99.0 F 76-90 18-24 143-170/83-118 97-98 GENERAL: The patient is awake, alert, and fully oriented, in no acute distress. HEAD: Normal with no signs of trauma. EYES: PERRL, extraocular movements intact, sclera anicteric, conjunctiva clear. No ptosis. ENT: Ears normal, nares patent, oropharynx clear without exudates, moist mucous membranes. NECK: Trachea midline, full range of motion, supple. LUNGS: Breath sounds equal, clear to auscultation bilaterally, no wheezes, no crackles, no accessory muscle use. HEART: Regular rate and rhythm, S1, S2 without murmur, rub or gallop. ABDOMEN: Soft, nontender, nondistended, normoactive bowel sounds, no guarding, no rebound, no hepatosplenomegaly, no masses. EXTREMITIES: 2+ pulses, warm, well-perfused, 2+ pitting edema. NEUROLOGICAL: Cranial nerves II through XII grossly intact. Normal speech, gait not observed. PSYCH: Normal mood, normal affect. SKIN: Warm, dry, normal turgor, no rashes or lesions noted Laboratory Results - last 24 hr CBC, BMP 06/24/19 05:40 06/24/19 05:40 Active Medications Acetaminophen (Tylenol -) 650 mg PO Q6H PRN PRN Reason: PAIN LEVEL 1-5 Last Admin: 06/24/19 09:14 Dose: 650 mg Furosemide (Lasix Injection -) 40 mg IVPUSH BIDLASIX [facility] Last Admin: 06/24/19 06:29 Dose: 40 mg Heparin Sodium (Porcine) (Heparin -) 5,000 unit SQ TID [facility] Labetalol HCl (Normodyne -) 200 mg PO BID [facility] Last Admin: 06/24/19 11:18 Dose: Not Given Nifedipine (Procardia Xl -) 30 mg PO ONCE ONE Stop: 06/24/19 11:55 Last Admin: 06/24/19 12:30 Dose: 30 mg ASSESSMENT/PLAN: 38 y/o F s/p C section at 34 weeks gestation for pre-eclampsia 6 days ago admitted for hypertensive urgency and acute renal failure. #Hypertensive emergency w/SOB and lower extremity edema 2/2 preeclampsia vs cardiomyopathy Echo: LV normal, EF: 60%, RV normal, RA and LA normal, mild pulmonary HTN, mild eccentric MR, RVP elevated at 37mmhg Cont BP control with labetolol 200mg BID. Start procardia 30mg daily, uptitrate as needed for control Cont lasix 40mg BID Cardiology on board, recommendations appreciated Duplex US: no evidence of DVT #LUISE w/hyperkalemia 2/2 NSAID use vs cardiomyopathy Cr: 3.3, improving from 4.4. K: 5.2, improving from 5.9 (received 1amp dextrose, 10u insulin, 1amp Hco3, lokelma, Ca gluc in ED). Peaked T waves noted on EKG UA: neg for proteinuria Cont to monitor BMP Renal US: no hydronephrosis or obstructive uropathy. Small echogenic R kidney Avoid nephrotoxic agents Nephrology consulted: f/u SPEP, UPEP, and urine electrolytes and eosinophils #FEN No IV fluids Regular diet Monitor BMP closely #DVT Ppx Lovenox 40mg --> switched to Hep SQ TID #Dispo Monitor on med-surg Visit type - Emergency Visit Emergency Visit: No - New Patient This patient is new to me today: Yes Date on this admission: 06/25/19 - Critical Care Critical Care patient: No ATTENDING PHYSICIAN STATEMENT I saw and evaluated the patient. I reviewed the resident's note and discussed the case with the resident. I agree with the resident's findings and plan as documented. SUBJECTIVE: OBJECTIVE: ASSESSMENT AND PLAN:
--- NOTE | 2019-06-24 14:14 | PN ---
Teaching Attending Note Name of Resident: Dacia Castillo ATTENDING PHYSICIAN STATEMENT I saw and evaluated the patient. I reviewed the resident's note and discussed the case with the resident. I agree with the resident's findings and plan as documented. SUBJECTIVE: No headache/visual disturbance/nausea/vomiting/dizziness. No fever/ chills. No CP/SOB. OBJECTIVE: Afebrile, Hemodynamically Stable. Last Vital Signs Temp Pulse Resp BP Pulse Ox 97.5 F L 81 18 163/115 H 98 06/24/19 08:31 06/24/19 11:50 06/24/19 08:31 06/24/19 11:50 06/24/19 08:31 HEENT - Atraumatic, Normocephalic. Heart - S1, S2, RRR Lungs - clear to auscultation Abdomen - incision. Soft, non-tender. Bowel Sounds normal. Extremities - Edema +. No calf tenderness. Laboratory Results - last 24 hr 06/23/19 06/23/19 06/23/19 18:00 18:00 18:00 WBC RBC Hgb Hct MCV MCH MCHC RDW Plt Count MPV Absolute Neuts (auto) Neutrophils % Lymphocytes % Monocytes % Eosinophils % Basophils % Nucleated RBC % PT with INR 11.40 Cancelled INR 0.97 Cancelled PTT (Actin FS) 26.6 Sodium Potassium Chloride Carbon Dioxide Anion Gap BUN Creatinine Est GFR (CKD-EPI)AfAm Est GFR (CKD-EPI)NonAf POC Glucometer Random Glucose Hemoglobin A1c % Calcium Phosphorus Magnesium Total Bilirubin AST ALT Alkaline Phosphatase LD Total Creatine Kinase Troponin I B-Natriuretic Peptide Total Protein Albumin Triglycerides Cholesterol Total LDL Cholesterol HDL Cholesterol Urine Color Yellow Urine Appearance Clear Urine pH 5.5 Ur Specific [place] 1.008 L Urine Protein Negative Urine Glucose (UA) Negative Urine Ketones Negative Urine Blood 2+ H Urine Nitrite Negative Urine Bilirubin Negative Urine Urobilinogen 0.2 Ur Leukocyte Esterase Trace Urine WBC (Auto) 3 Urine RBC (Auto) 2 Urine Casts (Auto) 1 U Epithel Cells (Auto) 1.6 Urine Bacteria (Auto) 10.1 06/23/19 06/23/19 06/23/19 18:40 18:40 18:40 WBC 10.3 H RBC 3.52 L Hgb 9.2 L Hct 28.5 L MCV 80.7 MCH 26.0 MCHC 32.2 RDW 16.2 H Plt Count 222 D MPV 9.5 Absolute Neuts (auto) 8.0 Neutrophils % 77.7 Lymphocytes % 9.7 Monocytes % 8.8 Eosinophils % 3.3 D Basophils % 0.5 Nucleated RBC % 0 PT with INR INR PTT (Actin FS) Sodium 139 Potassium 5.9 H Chloride 107 Carbon Dioxide 22 Anion Gap 10 BUN 72.4 H Creatinine 4.4 H Est GFR (CKD-EPI)AfAm 13.90 Est GFR (CKD-EPI)NonAf 11.99 POC Glucometer Random Glucose 74 Hemoglobin A1c % Calcium 9.5 Phosphorus Magnesium 2.6 H Total Bilirubin 0.2 AST 33 ALT 60 Alkaline Phosphatase 90 LD Total 419 H Creatine Kinase 114 Troponin I < 0.02 B-Natriuretic Peptide 1642.7 H Total Protein 6.3 L Albumin 2.6 L Triglycerides Cholesterol Total LDL Cholesterol HDL Cholesterol Urine Color Urine Appearance Urine pH Ur Specific [place] Urine Protein Urine Glucose (UA) Urine Ketones Urine Blood Urine Nitrite Urine Bilirubin Urine Urobilinogen Ur Leukocyte Esterase Urine WBC (Auto) Urine RBC (Auto) Urine Casts (Auto) U Epithel Cells (Auto) Urine Bacteria (Auto) 06/23/19 06/23/19 06/24/19 20:25 23:24 03:00 WBC RBC Hgb Hct MCV MCH MCHC RDW Plt Count MPV Absolute Neuts (auto) Neutrophils % Lymphocytes % Monocytes % Eosinophils % Basophils % Nucleated RBC % PT with INR INR PTT (Actin FS) Sodium 142 Cancelled Potassium 5.7 H Cancelled Chloride 110 H Cancelled Carbon Dioxide 21 Cancelled Anion Gap 11 Cancelled BUN 77.2 H Cancelled Creatinine 4.1 H Cancelled Est GFR (CKD-EPI)AfAm 15.14 Cancelled Est GFR (CKD-EPI)NonAf 13.06 Cancelled POC Glucometer 36 Random Glucose 81 Cancelled Hemoglobin A1c % Calcium 9.8 Cancelled Phosphorus Magnesium Total Bilirubin AST ALT Alkaline Phosphatase LD Total Creatine Kinase Troponin I B-Natriuretic Peptide Total Protein Albumin Triglycerides Cholesterol Total LDL Cholesterol HDL Cholesterol Urine Color Urine Appearance Urine pH Ur Specific [place] Urine Protein Urine Glucose (UA) Urine Ketones Urine Blood Urine Nitrite Urine Bilirubin Urine Urobilinogen Ur Leukocyte Esterase Urine WBC (Auto) Urine RBC (Auto) Urine Casts (Auto) U Epithel Cells (Auto) Urine Bacteria (Auto) 06/24/19 06/24/19 06/24/19 05:40 05:40 05:40 WBC 10.2 H RBC 3.69 Hgb 9.7 L Hct 29.1 L MCV 78.8 L MCH 26.2 MCHC 33.3 RDW 16.6 H Plt Count 212 MPV 8.7 Absolute Neuts (auto) 8.2 H Neutrophils % 80.8 Lymphocytes % 6.8 L D Monocytes % 9.4 Eosinophils % 2.6 Basophils % 0.4 Nucleated RBC % 0 PT with INR INR PTT (Actin FS) Sodium 141 Potassium 5.2 H Chloride 111 H Carbon Dioxide 21 Anion Gap 9 BUN 72.1 H Creatinine 3.3 H Est GFR (CKD-EPI)AfAm 19.68 Est GFR (CKD-EPI)NonAf 16.98 POC Glucometer Random Glucose 89 Hemoglobin A1c % 4.3 Calcium 10.3 H Phosphorus 7.8 H Magnesium 2.1 Total Bilirubin 0.3 AST 31 ALT 66 H Alkaline Phosphatase 87 LD Total Creatine Kinase Troponin I B-Natriuretic Peptide Total Protein 6.7 Albumin 2.7 L Triglycerides 93 Cholesterol 270 H Total LDL Cholesterol 151 H HDL Cholesterol 93 H Urine Color Urine Appearance Urine pH Ur Specific [place] Urine Protein Urine Glucose (UA) Urine Ketones Urine Blood Urine Nitrite Urine Bilirubin Urine Urobilinogen Ur Leukocyte Esterase Urine WBC (Auto) Urine RBC (Auto) Urine Casts (Auto) U Epithel Cells (Auto) Urine Bacteria (Auto) Current Medications Generic Name Dose Route Start Last Admin Trade Name Ryanq PRN Reason Stop Dose Admin Acetaminophen 650 mg 06/24/19 00:09 06/24/19 09:14 Tylenol - PO 650 mg Q6H PRN Administration PAIN LEVEL 1-5 Furosemide 40 mg 06/24/19 02:45 06/24/19 06:29 Lasix Injection - IVPUSH 40 mg BIDLASIX AYAN Administration Heparin Sodium (Porcine) 5,000 unit 06/25/19 10:00 Heparin - SQ TID AYAN Labetalol HCl 200 mg 06/24/19 10:00 06/24/19 11:18 Normodyne - PO Not Given BID AYAN Nifedipine 30 mg 06/24/19 11:54 06/24/19 12:30 Procardia Xl - PO 06/24/19 11:55 30 mg ONCE ONE Administration Home Medications Medication Instructions Recorded Aspirin [ASA -] 81 mg PO DAILY 06/13/19 Ferrous Sulfate [Feosol] 325 mg PO BID 06/13/19 Vitamins (Sjr) - 1 tab PO DAILY 06/13/19 Acetaminophen [Tylenol -] 1,000 mg PO Q6H #60 tablet 06/21/19 Ibuprofen [Motrin -] 600 mg PO QID #28 tablet 06/21/19 Labetalol HCl [Normodyne -] 200 mg PO Q6H PRN #60 tablet 06/21/19 Simethicone 80 mg PO BID #30 tab.chew 06/21/19 ASSESSMENT/PLAN: 38 year old female POD 7 s/p , presents with 2-3 day history of worsening dyspnea, and orthopnea. No chest pain/palpitations/cough/sputum/fever/ chills. 1. Acute Diastolic CHF sec to Uncontrolled HTN Pre-eclampsia to be excluded by Obstetrics. Edema + but no proteinuria. Obstetrics following. BP not controlled on Labetolol. Will add Nifedipine. Echo - normal EF, mildly elevated PA pressure. Receiving Lasix for LE edema/orthopnea. 2. LUIS E, etiology unclear. ?sec to NSAIDs ?DARLEEN Renal US - mildly echogenic R kidney, no obstruction. Nephrology to evaluate. Will order Renal Artery Doppler 3. Hyperkalemia sec to LUIS E s/p Insulin/Dextrose. Will monitor. DVT Px - Heparin SQ.
--- NOTE | 2019-06-24 14:28 | CON.CARD ---
Consult Consult Specialty:: Cardiology Referred by:: Hospitalist Reason for Consultation:: Cardiac evaluation - History of Present Illness Chief Complaint: Hypertension, shortness of breath History of Present Illness: Patient is a 38 year old female s/p recent for pre-eclampsia who had presented with shortness of breath and persistent hypertension. Despite Labetalol that was given, she remained hypertensive after she was discharged home. She again felt short of breath and was not able to lie flat. She was referred by her ENVIRONMENTAL ASSOCIATE to be admitted to the hospital. Currently, she denies chest pain or palpitations. Breathing is better today. She denies fever or chills. She denies nausea, vomiting, diarrhea or abdominal pain. She denies headache or lightheadedness. She also presented with elevated Cr c/w LUIS E. - History Source History Provided By: Patient, Medical Record Limitations to Obtaining History: No Limitations - Past Medical History Cardio/Vascular: Yes: HTN, Other (Preeclampsia during recent ) Endocrine: Yes: Other (morbid obesity) - Past Surgical History Past Surgical History: Yes: - Alcohol/Substance Use Hx Alcohol Use: No History of Substance Use: reports: None - Smoking History Smoking history: Never smoked Have you smoked in the past 12 months: No - Social History History of Recent Travel: No Home Medications - Allergies Allergies/Adverse Reactions: Allergies Allergy/AdvReac Type Severity Reaction Status Date / Time amoxicillin [From Augmentin] Allergy Unknown Hives Verified 06/17/19 08:09 clavulanic acid Allergy Unknown Hives Verified 06/17/19 08:09 [From Augmentin] doxycycline Allergy Unknown Hives Verified 06/17/19 08:09 - Home Medications Home Medications: Ambulatory Orders Ferrous Sulfate [Feosol] 325 mg PO BID 06/13/19 Vitamins (Sjr) - 1 tab PO DAILY 06/13/19 Acetaminophen [Tylenol -] 1,000 mg PO Q6H #60 tablet 06/21/19 Ibuprofen [Motrin -] 600 mg PO QID #28 tablet 06/21/19 Labetalol HCl [Normodyne -] 200 mg PO Q6H PRN #60 tablet 06/21/19 Review of Systems - Review of Systems Constitutional: denies: Chills, Fever Cardiovascular: reports: Shortness of Breath. denies: Chest Pain, Palpitations Respiratory: reports: SOB, SOB on Exertion. denies: Cough, Hemoptysis, Orthopnea, PND Gastrointestinal: denies: Abdominal Pain, Constipation, Diarrhea, Melena, Nausea , Rectal Bleeding, Vomiting Genitourinary: denies: Dysuria, Hematuria Musculoskeletal: denies: Back Pain, Joint Pain Neurological: denies: Dizziness, Headache, Seizure, Syncope Vital Signs: Vital Signs Temperature 97.5 F L 06/24/19 08:31 Pulse Rate 78 06/24/19 14:22 Respiratory Rate 18 06/24/19 08:31 Blood Pressure 137/96 06/24/19 14:22 O2 Sat by Pulse Oximetry (%) 98 06/24/19 08:31 Eyes: Yes: PERRL HENT: Yes: Atraumatic Neck: Yes: Supple Respiratory: Yes: CTA Bilaterally Gastrointestinal: Yes: Normal Bowel Sounds, Soft, Other (Post ) Cardiovascular: Yes: Regular Rate and Rhythm JVD: No PMI: Non-Displaced Heart Sounds: Yes: S1, S2 Murmur: No: Systolic Murmur Edema: Yes - Other Data Labs, Other Data: CBC, BMP 06/24/19 05:40 06/24/19 05:40 INR, PTT INR 0.97 (0.83-1.09) 06/23/19 18:00 Troponin, BNP 06/23/19 18:40 Troponin I < 0.02 B-Natriuretic Peptide 1642.7 H Abnormal Lab Results 06/23/19 06/23/19 06/23/19 18:00 18:40 18:40 WBC 10.3 H RBC 3.52 L Hgb 9.2 L Hct 28.5 L MCV RDW 16.2 H Absolute Neuts (auto) Lymphocytes % Potassium 5.9 H Chloride BUN 72.4 H Creatinine 4.4 H Calcium Phosphorus Magnesium ALT LD Total B-Natriuretic Peptide 1642.7 H Total Protein 6.3 L Albumin 2.6 L Cholesterol Total LDL Cholesterol HDL Cholesterol Ur Specific [place] 1.008 L Urine Blood 2+ H 06/23/19 06/23/19 06/24/19 18:40 20:25 05:40 WBC 10.2 H RBC Hgb 9.7 L Hct 29.1 L MCV 78.8 L RDW 16.6 H Absolute Neuts (auto) 8.2 H Lymphocytes % 6.8 L D Potassium 5.7 H Chloride 110 H BUN 77.2 H Creatinine 4.1 H Calcium Phosphorus Magnesium 2.6 H ALT LD Total 419 H B-Natriuretic Peptide Total Protein Albumin Cholesterol Total LDL Cholesterol HDL Cholesterol Ur Specific [place] Urine Blood 06/24/19 05:40 WBC RBC Hgb Hct MCV RDW Absolute Neuts (auto) Lymphocytes % Potassium 5.2 H Chloride 111 H BUN 72.1 H Creatinine 3.3 H Calcium 10.3 H Phosphorus 7.8 H Magnesium ALT 66 H LD Total B-Natriuretic Peptide Total Protein Albumin 2.7 L Cholesterol 270 H Total LDL Cholesterol 151 H HDL Cholesterol 93 H Ur Specific [place] Urine Blood Normal sinus rhythm Echo: Report Reviewed Imaging - Results Chest X-ray: Report Reviewed (Unremarkable) EKG: Report Reviewed Problem List - Problems (1) HTN (hypertension) Code(s): I10 - ESSENTIAL (PRIMARY) HYPERTENSION (2) LUIS E (acute kidney injury) Code(s): N17.9 - ACUTE KIDNEY FAILURE, UNSPECIFIED (3) Pedal edema Code(s): R60.0 - LOCALIZED EDEMA (4) Shortness of breath Code(s): R06.02 - SHORTNESS OF BREATH Assessment/Plan 1. Post with history of pre-eclampsia 2. Acute Kidney Injury with elevated Cr 3. HTN - uncontrolled 4. Shortness of breath PLAN: 1. Renal input noted. Monitor renal function 2. Continue Labetalol 200 mg BID. Uptitrate Procardia XL to 60 mg QD as BP still is elevated 3. Echocardiography to rule out post cardiomyopathy 4. Diuretics and monitor daily weight, I/Os, renal function and electrolytes 5. Follow up as outpatient once clinically stable Further plans are to follow Eugene Fuentes MD
--- NOTE | 2019-06-24 15:44 | PN ---
Teaching Attending Note Name of Resident: Sergio Prescott (Nephrology) ATTENDING PHYSICIAN STATEMENT I saw and evaluated the patient. I reviewed the resident's note and discussed the case with the resident. I agree with the resident's findings and plan as documented. Renal Pt is a 38 year old female with pmhx of pre-eclampsai, 6 days ago, and anemia who presented with shortness of breath and edema. She was found to be in acute renal failure and I was called to evaluate her. She did have proteinuria at the end of her . Her 24 hour urine prt was about 1.7 grams. She was also started on labetolol for htn. She denies dysuria or hematuria. She feels that her edema responded well to lasix. Pt was taking nsaids regularly for pain and discomfort. pmhx anemia, preeclampsia htn pshc family hx htn ros swelling social hx denies Current Medications Generic Name Dose Route Start Last Admin Trade Name Freq PRN Reason Stop Dose Admin Acetaminophen 650 mg 06/24/19 00:09 06/24/19 09:14 Tylenol - PO 650 mg Q6H PRN Administration PAIN LEVEL 1-5 Furosemide 40 mg 06/24/19 02:45 06/24/19 06:29 Lasix Injection - IVPUSH 40 mg BIDLASIX AYAN Administration Heparin Sodium (Porcine) 5,000 unit 06/25/19 10:00 Heparin - SQ TID AYAN Labetalol HCl 200 mg 06/24/19 10:00 06/24/19 11:18 Normodyne - PO Not Given BID AYAN Last Vital Signs Temp Pulse Resp BP Pulse Ox 97.5 F L 78 18 137/96 98 06/24/19 08:31 06/24/19 14:22 06/24/19 08:31 06/24/19 14:22 06/24/19 08:31 cardio s1s2 reg pulm clear Gi soft ext plus 3 edema neuro awake and alert skin neg rash Laboratory Tests 06/17/19 06/23/19 06/23/19 07:52 18:00 18:40 WBC 10.3 H Potassium Creatinine 0.6 Magnesium Ur Specific [place] 1.008 L Urine Protein Negative Urine Blood 2+ H 06/23/19 06/23/19 06/24/19 18:40 20:25 05:40 WBC 10.2 H Potassium 5.9 H 5.7 H Creatinine 4.4 H 4.1 H Magnesium Ur Specific [place] Urine Protein Urine Blood 06/24/19 05:40 WBC Potassium 5.2 H Creatinine 3.3 H Magnesium 2.1 Ur Specific [place] Urine Protein Urine Blood Impression 1. LUIS E 2. fluid overload 3. nsaid use 4. s/p 5. htn 6. anemia 7. hyperkalemia Plan - cont lasix - prcardia added and bp is improved - follow cardio recs - renal ultrasound reviewed, right kidney appears echogenic - discussed with PSYCHOLOGICAL [employer]S SALES AGENT - stop and avoid nsaids - renal function is improving - lasix should also help with potassium - repeat labs in am - repeat ua and check prt to lead c developer ratio - check anti dsnda - check mirna Dr Isabel
[2019-06-24 18:44] LABS: EPI CELLS 0.9 /HPF (0-5/HPF); HYALINE CASTS 1 /lpf (0-8); URINE APPEARANCE CLEAR; URINE BACTERIA 2.2 /hpf (NEGATIVE); URINE BILIRUBIN NEGATIVE (NEGATIVE); URINE COLOR YELLOW; URINE GLUCOSE (UA) NEGATIVE (NEGATIVE); URINE KETONE NEGATIVE (NEGATIVE); URINE LEUK ESTERASE TRACE (NEGATIVE); URINE NITRITE NEGATIVE (NEGATIVE); URINE PROTEIN NEGATIVE (NEGATIVE); URINE RBC 13 /hpf (0-4); URINE UROBILINOGEN 0.2 mg/dL (0.2-1.0); URINE WBC 4 /hpf (0-5)
[2019-06-24 19:20] LABS: URINE CREATININE < 13.0 mg/dL (20-275)
[2019-06-25] MEDS: FUROSEMIDE 40 MG/4 ML INJECTABLE VIAL IVPUSH SCH (06:12)
--- NOTE | 2019-06-25 06:38 | PN ---
Progress Note (short form) - Note Progress Note: Chief Complaint: Event noted, notes reviewed, denies any dyspnea, denies any chest discomfort History of Present Illness: Seen and examined on telemetry. Event noted, notes reviewed, denies any dyspnea , denies any chest discomfort Echocardiography performed June 24, 2019 revealed normal left ventricular size and systolic function with calculated LVEF of 60%, normal right ventricular size and systolic function, mild eccentric mitral valve regurgitation, mild tricuspid valve regurgitation with calculated RVSP of 37 mmHg - Current Medication List Current Medications Acetaminophen (Tylenol -) 650 mg PO Q6H PRN PRN Reason: PAIN LEVEL 1-5 Last Admin: 06/24/19 23:04 Dose: 650 mg Furosemide (Lasix Injection -) 40 mg IVPUSH BIDLASIX AYAN Last Admin: 06/25/19 06:12 Dose: 40 mg Heparin Sodium (Porcine) (Heparin -) 5,000 unit SQ TID AYAN Labetalol HCl (Normodyne -) 200 mg PO BID AYAN Last Admin: 06/24/19 22:10 Dose: 200 mg Nifedipine (Procardia Xl -) 30 mg PO DAILY [facility] Review of Systems Cardiovascular: As noted above Respiratory: denies Cough or Sputum Production Gastrointestinal: denies: Nausea, Vomiting, Diarrhea, Constipation or Abdominal Discomfort Musculoskeletal: no symptoms reported - Objective Vital Signs: Last Vital Signs Temp Pulse Resp BP Pulse Ox 99.1 F 86 18 141/71 97 06/25/19 01:39 06/25/19 01:39 06/25/19 01:39 06/25/19 01:39 06/24/19 21:00 Intake & Output 06/22/19 06/23/19 06/24/19 06/25/19 23:59 23:59 23:59 23:59 Intake Total 700 Output Total 6000 1500 Balance -5300 -1500 Weight 223 lb 220 lb Constitutional: No Distress, Calm Neck: Supple Negative JVD No Bruit Respiratory: clear to A&P Bilaterally Cardiovascular: S1 S2 Regular Rate Rhythm Gastrointestinal: Soft Benign Normal Bowel Sounds Ext: Trace Edema Labs: Hepatic Panel Total Bilirubin 0.3 mg/dL (0.2-1) 06/24/19 05:40 AST 31 U/L (15-37) 06/24/19 05:40 ALT 66 U/L (13-61) H 06/24/19 05:40 Alkaline Phosphatase 87 U/L (45-117) 06/24/19 05:40 Albumin 2.7 g/dl (3.4-5.0) L 06/24/19 05:40 INR, PTT INR 0.97 (0.83-1.09) 06/23/19 18:00 Blood test pending from this AM ASSESSMENT: 1. Clinical presentation consistent with volume overload related to acute renal insufficiency 2. Post with history of pre-eclampsia 3. No evidence of systolic or diastolic left ventricular dysfunction or valvular pathology 4. HTN - labile blood pressure and not at goal 5. Shortness of breath PLAN: 1. Continue Labetalol and dose titration as needed 2. Continue Procardia XL and dose titration as needed 3. Continue Lasix therapy and may switch to PO therapy with close monitoring of renal function and electrolytes 4. Patient may be transferred to floor care or discharge home from the cardiovascular point of view and to followup in the office for further evaluation and management Abigail Russell M.D.
[2019-06-25 07:02] LABS: HEMATOCRIT 32.2 % (32.4-45.2); HEMOGLOBIN 10.6 GM/dL (10.7-15.3); MCHC 32.9 g/dl (32.0-36.0); MEAN CELL VOLUME 78.9 fl (80-96); MEAN PLT VOLUME 9.1 fl (7.5-11.1); PLATELET COUNT 270 K/MM3 (134-434); RBC 4.08 M/mm3 (3.60-5.2); RDW 16.8 % (11.6-15.6)
[2019-06-25 08:05] LABS: ALBUMIN 3.1 g/dl (3.4-5.0); BILIRUBIN,TOTAL 0.4 mg/dL (0.2-1); BLOOD UREA NITROGEN 50.8 mg/dL (7-18); CALCIUM 10.5 mg/dL (8.5-10.1); CREATININE 2.2 mg/dL (0.55-1.3); POTASSIUM 4.6 mmol/L (3.5-5.1); TOT PROT 7.5 g/dl (6.4-8.2)
[2019-06-25 09:23] LABS: PHOSPHOROUS 8.3 mg/dL (2.5-4.9)
[2019-06-25] MEDS: HEPARIN NA (PORCINE) 5,000 UNITS/ML 1ML VIAL SQ SCH ×3 (09:49→22:48)
[2019-06-25] MEDS: LABETALOL HCL 200 MG TABLET (FP) PO SCH ×2 (09:50→22:48)
[2019-06-25] MEDS: NIFEdipine E.R 60 MG TABLET (UD) PO SCH (09:50)
[2019-06-25] MEDS ORDERED: NIFEdipine E.R. 30 MG TABLET (FP) PO SCH (10:00)
[2019-06-25] MEDS ORDERED: CALCIUM ACETATE 667 MG CAPSULE (FP) PO SCH (12:00)
[2019-06-25] MEDS: SEVELAMER CARBONATE 800 MG TAB (FP) PO SCH ×2 (12:16→17:31)
--- NOTE | 2019-06-25 12:36 | PN ---
Progress Note, Physician History of Present Illness: Pt seen and examined at bedside. She is awake and alert. She denies shortness of breath. She feels that her edema is improving. - Current Medication List Current Medications: Active Medications Acetaminophen (Tylenol -) 650 mg PO Q6H PRN PRN Reason: PAIN LEVEL 1-5 Last Admin: 06/24/19 23:04 Dose: 650 mg Furosemide (Lasix Injection -) 40 mg IVPUSH BIDLASIX [facility] Last Admin: 06/25/19 06:12 Dose: 40 mg Heparin Sodium (Porcine) (Heparin -) 5,000 unit SQ TID [facility] Last Admin: 06/25/19 09:49 Dose: 5,000 unit Labetalol HCl (Normodyne -) 200 mg PO BID [facility] Last Admin: 06/25/19 09:50 Dose: 200 mg Nifedipine (Procardia Xl -) 60 mg PO DAILY [facility] Last Admin: 06/25/19 09:50 Dose: 60 mg Sevelamer Carbonate (Renvela -) 800 mg PO TIDCM [facility] Last Admin: 06/25/19 12:16 Dose: 800 mg - Objective Vital Signs: Vital Signs Temperature 98.8 F 06/25/19 09:58 Pulse Rate 100 H 06/25/19 09:58 Respiratory Rate 18 06/25/19 09:58 Blood Pressure 150/81 06/25/19 09:58 O2 Sat by Pulse Oximetry (%) 95 06/25/19 09:00 Constitutional: Yes: Calm Eyes: Yes: Conjunctiva Clear HENT: Yes: Atraumatic Neck: Yes: Supple Cardiovascular: Yes: S1, S2 Respiratory: Yes: CTA Bilaterally Gastrointestinal: Yes: Normal Bowel Sounds, Soft Genitourinary: Yes: WNL Musculoskeletal: Yes: WNL Edema: Yes Edema: LLE: 1+, RLE: 1+ Integumentary: Yes: WNL Neurological: Yes: Oriented Psychiatric: Yes: Oriented Labs: CBC, BMP 06/25/19 05:30 06/25/19 05:30 INR, PTT INR 0.97 (0.83-1.09) 06/23/19 18:00 Assessment/Plan Current Medications Generic Name Dose Route Start Last Admin Trade Name Freq PRN Reason Stop Dose Admin Acetaminophen 650 mg 06/24/19 00:09 06/24/19 23:04 Tylenol - PO 650 mg Q6H PRN Administration PAIN LEVEL 1-5 Furosemide 40 mg 06/24/19 02:45 06/25/19 06:12 Lasix Injection - IVPUSH 40 mg BIDLASIX AYAN Administration Heparin Sodium (Porcine) 5,000 unit 06/25/19 10:00 06/25/19 09:49 Heparin - SQ 5,000 unit TID AYAN Administration Labetalol HCl 200 mg 06/24/19 10:00 06/25/19 09:50 Normodyne - PO 200 mg BID AYAN Administration Nifedipine 60 mg 06/25/19 10:00 06/25/19 09:50 Procardia Xl - PO 60 mg DAILY AYAN Administration Sevelamer Carbonate 800 mg 06/25/19 12:00 06/25/19 12:16 Renvela - PO 800 mg TIDCM AYAN Administration Laboratory Tests 06/24/19 06/24/19 06/25/19 17:30 17:30 05:30 Calcium 10.5 H Phosphorus 8.3 H PTH Intact Urine Protein Negative Protein/Creatinin Ratio 0.0 MIGUEL Screen Double Strand DNA Ab 06/25/19 06/25/19 05:30 09:00 Calcium Phosphorus PTH Intact Pending Urine Protein Protein/Creatinin Ratio MIGUEL Screen Pending Double Strand DNA Ab Pending Impression 1. LUIS E 2. fluid overload 3. nsaid use 4. s/p 5. htn 6. anemia 7. hyperkalemia 8. hypercalcemia Plan - switch lasix to PO - repeat labs in am - follow pth - potassium improved - renal function improving - monitor bp on labetolol and procardia and titrate as needed - discussed with police and fire dispatcher - ua neg for protein Dr Isabel
--- NOTE | 2019-06-25 13:36 | PN ---
Teaching Attending Note Name of Resident: Parvez Murray ATTENDING PHYSICIAN STATEMENT I saw and evaluated the patient. I reviewed the resident's note and discussed the case with the resident. I agree with the resident's findings and plan as documented. SUBJECTIVE: headache overnight. No visual disturbance/nausea/vomiting/ dizziness. No fever/chills. No CP/SOB. OBJECTIVE: Afebrile, Hemodynamically Stable. Last Vital Signs Temp Pulse Resp BP Pulse Ox 98.8 F 100 H 18 150/81 95 06/25/19 09:58 06/25/19 09:58 06/25/19 09:58 06/25/19 09:58 06/25/19 09:00 HEENT - Atraumatic, Normocephalic. Heart - S1, S2, RRR Lungs - clear to auscultation Abdomen - incision. Soft, non-tender. Bowel Sounds normal. Extremities - Edema +. No calf tenderness. Laboratory Results - last 24 hr 06/24/19 06/24/19 06/24/19 17:28 17:30 17:30 WBC RBC Hgb Hct MCV MCH MCHC RDW Plt Count MPV Sodium Potassium Chloride Carbon Dioxide Anion Gap BUN Creatinine Est GFR (CKD-EPI)AfAm Est GFR (CKD-EPI)NonAf POC Glucometer 101 Random Glucose Calcium Phosphorus Total Bilirubin AST ALT Alkaline Phosphatase Total Protein Albumin Urine Color Urine Appearance Urine pH Ur Specific [place] Urine Protein Urine Glucose (UA) Urine Ketones Urine Blood Urine Nitrite Urine Bilirubin Urine Urobilinogen Ur Leukocyte Esterase Urine WBC (Auto) Urine RBC (Auto) Urine Casts (Auto) U Epithel Cells (Auto) Urine Bacteria (Auto) Ur Random Creatinine < 13.0 L U Random Total Protein 7.9 Urine Creatinine < 13.0 L Protein/Creatinin Ratio 0.0 06/24/19 06/24/19 06/24/19 17:30 18:49 20:52 WBC RBC Hgb Hct MCV MCH MCHC RDW Plt Count MPV Sodium Potassium Chloride Carbon Dioxide Anion Gap BUN Creatinine Est GFR (CKD-EPI)AfAm Est GFR (CKD-EPI)NonAf POC Glucometer 108 103 Random Glucose Calcium Phosphorus Total Bilirubin AST ALT Alkaline Phosphatase Total Protein Albumin Urine Color Yellow Urine Appearance Clear Urine pH 7.0 D Ur Specific [place] 1.006 L Urine Protein Negative Urine Glucose (UA) Negative Urine Ketones Negative Urine Blood 2+ H Urine Nitrite Negative Urine Bilirubin Negative Urine Urobilinogen 0.2 Ur Leukocyte Esterase Trace Urine WBC (Auto) 4 Urine RBC (Auto) 13 Urine Casts (Auto) 1 U Epithel Cells (Auto) 0.9 Urine Bacteria (Auto) 2.2 Ur Random Creatinine U Random Total Protein Urine Creatinine Protein/Creatinin Ratio 06/25/19 06/25/19 06/25/19 05:30 05:30 12:17 WBC 10.0 RBC 4.08 Hgb 10.6 L Hct 32.2 L MCV 78.9 L MCH 26.0 MCHC 32.9 RDW 16.8 H Plt Count 270 D MPV 9.1 Sodium 142 Potassium 4.6 Chloride 104 Carbon Dioxide 29 Anion Gap 9 BUN 50.8 H Creatinine 2.2 H Est GFR (CKD-EPI)AfAm 32.13 Est GFR (CKD-EPI)NonAf 27.72 POC Glucometer 103 Random Glucose 96 Calcium 10.5 H Phosphorus 8.3 H Total Bilirubin 0.4 AST 39 H ALT 90 H Alkaline Phosphatase 85 Total Protein 7.5 Albumin 3.1 L Urine Color Urine Appearance Urine pH Ur Specific [place] Urine Protein Urine Glucose (UA) Urine Ketones Urine Blood Urine Nitrite Urine Bilirubin Urine Urobilinogen Ur Leukocyte Esterase Urine WBC (Auto) Urine RBC (Auto) Urine Casts (Auto) U Epithel Cells (Auto) Urine Bacteria (Auto) Ur Random Creatinine U Random Total Protein Urine Creatinine Protein/Creatinin Ratio Current Medications Generic Name Dose Route Start Last Admin Trade Name Freq PRN Reason Stop Dose Admin Acetaminophen 650 mg 06/24/19 00:09 06/24/19 23:04 Tylenol - PO 650 mg Q6H PRN Administration PAIN LEVEL 1-5 Furosemide 40 mg 06/26/19 10:00 Lasix - PO DAILY AYAN Heparin Sodium (Porcine) 5,000 unit 06/25/19 10:00 06/25/19 09:49 Heparin - SQ 5,000 unit TID AYAN Administration Labetalol HCl 200 mg 06/24/19 10:00 06/25/19 09:50 Normodyne - PO 200 mg BID AYAN Administration Nifedipine 60 mg 06/25/19 10:00 06/25/19 09:50 Procardia Xl - PO 60 mg DAILY AYAN Administration Sevelamer Carbonate 800 mg 06/25/19 12:00 06/25/19 12:16 Renvela - PO 800 mg TIDCM AYAN Administration Home Medications Medication Instructions Recorded Ferrous Sulfate [Feosol] 325 mg PO BID 06/13/19 Vitamins (Sjr) - 1 tab PO DAILY 06/13/19 Acetaminophen [Tylenol -] 1,000 mg PO Q6H #60 tablet 06/21/19 Ibuprofen [Motrin -] 600 mg PO QID #28 tablet 06/21/19 Labetalol HCl [Normodyne -] 200 mg PO Q6H PRN #60 tablet 06/21/19 ASSESSMENT/PLAN: 38 year old female POD 7 s/p , presents with 2-3 day history of worsening dyspnea, and orthopnea. No chest pain/palpitations/cough/sputum/fever/ chills. 1. Acute Diastolic CHF sec to Uncontrolled HTN Pre-eclampsia to be excluded by Obstetrics. Edema present but no proteinuria. Obstetrics following. BP beter controlled on Labetolol and Nifedipine (dose increased to Nifedipine XL 60mg). Echo - normal EF, mildly elevated PA pressure. Receiving Lasix for LE edema/orthopnea - transitioned from IV to PO. 2. LUIS E, etiology unclear. ?sec to NSAIDs ?DARLEEN Renal function improving. Renal US - mildly echogenic R kidney, no obstruction. Nephrology following Renal Artery Doppler ordered but apparently not done as in-patient at [facility]. 3. Hyperkalemia sec to LUIS E - resolved. 4. Microcytic Anemia s/p - no evidence of ongoing blood loss. Iron/ Ferritin levels ordered. DVT Px - Heparin SQ.
[2019-06-25] MEDS ORDERED: FUROSEMIDE 40 MG TABLET (FP) PO SCH (14:00)
--- NOTE | 2019-06-25 14:40 | PN ---
Physical Exam: SUBJECTIVE: Patient seen and examined. No acute events overnight. OBJECTIVE: Vital Signs Period Temp Pulse Resp BP Sys/Ruth Pulse Ox Last 24 Hr 98.6 F-99.7 F 82-100 18-18 132-165/66-100 95-97 GENERAL: The patient is awake, alert, and fully oriented, in no acute distress. HEAD: Normal with no signs of trauma. EYES: PERRL, extraocular movements intact, sclera anicteric, conjunctiva clear. No ptosis. ENT: Ears normal, nares patent, oropharynx clear without exudates, moist mucous membranes. NECK: Trachea midline, full range of motion, supple. LUNGS: Breath sounds equal, clear to auscultation bilaterally, no wheezes, no crackles, no accessory muscle use. HEART: Regular rate and rhythm, S1, S2 without murmur, rub or gallop. ABDOMEN: Soft, nontender, nondistended, normoactive bowel sounds, no guarding, no rebound, no hepatosplenomegaly, no masses. EXTREMITIES: 2+ pulses, warm, well-perfused, 1+ pitting edema. NEUROLOGICAL: Cranial nerves II through XII grossly intact. Normal speech, gait not observed. PSYCH: Normal mood, normal affect. SKIN: Warm, dry, normal turgor, no rashes or lesions noted Laboratory Results - last 24 hr CBC, BMP 06/25/19 05:30 06/25/19 05:30 Active Medications Acetaminophen (Tylenol -) 650 mg PO Q6H PRN PRN Reason: PAIN LEVEL 1-5 Last Admin: 06/24/19 23:04 Dose: 650 mg Furosemide (Lasix -) 40 mg PO DAILY [facility] Heparin Sodium (Porcine) (Heparin -) 5,000 unit SQ TID [facility] Last Admin: 06/25/19 14:02 Dose: 5,000 unit Labetalol HCl (Normodyne -) 200 mg PO BID [facility] Last Admin: 06/25/19 09:50 Dose: 200 mg Nifedipine (Procardia Xl -) 60 mg PO DAILY [facility] Last Admin: 06/25/19 09:50 Dose: 60 mg Sevelamer Carbonate (Renvela -) 800 mg PO TIDCM [facility] Last Admin: 06/25/19 12:16 Dose: 800 mg ASSESSMENT/PLAN: 38 y/o F s/p C section at 34 weeks gestation for pre-eclampsia 6 days ago admitted for hypertensive urgency and acute renal failure. #Hypertensive emergency w/SOB and lower extremity edema 2/2 preeclampsia vs cardiomyopathy Echo: LV normal, EF: 60%, RV normal, RA and LA normal, mild pulmonary HTN, mild eccentric MR, RVP elevated at 37mmhg Cont BP control with labetolol 200mg BID and increase procardia to 60mg daily Decrease IV lasix to 40mg po daily Cardiology and nephrology on board, recommendations appreciated Duplex US: no evidence of DVT Renal artery doppler as outpatient to r/o renal artery stenosis #LUIS E w/hyperkalemia 2/2 NSAID use vs cardiomyopathy Cr: 2.2, improving from 4.4. K: 4.6, improving from 5.9 (received 1amp dextrose, 10u insulin, 1amp Hco3, lokelma, Ca gluc in ED). Peaked T waves noted on EKG UA: neg for proteinuria Cont to monitor BMP Renal US: no hydronephrosis or obstructive uropathy. Small echogenic R kidney Avoid nephrotoxic agents Nephrology consulted: f/u SPEP, UPEP, and urine electrolytes and eosinophils #FEN No IV fluids Regular diet Monitor BMP closely #DVT Ppx Lovenox 40mg --> switched to Hep SQ TID #Dispo Monitor on med-surg Visit type - Emergency Visit Emergency Visit: No - New Patient This patient is new to me today: No - Critical Care Critical Care patient: No ATTENDING PHYSICIAN STATEMENT I saw and evaluated the patient. I reviewed the resident's note and discussed the case with the resident. I agree with the resident's findings and plan as documented. SUBJECTIVE: OBJECTIVE: ASSESSMENT AND PLAN:
[2019-06-25] MEDS: ACETAMINOPHEN 325 MG TABLET (FP) PO PRN (16:25)
[2019-06-25 17:40] LABS: IRON SERUM 49 ug/dL (50-175); TOTAL IRON BINDING CAPACITY 385 ug/dL (250-450)
--- NOTE | 2019-06-25 18:10 | PN ---
Progress Note (SOAP) - Subjective Chief Complaint: Pt states feeling better, SOB improved. History of Present Illness: s/p recent primary C/S for IUGR and pre-eclampsia. Pt wsa hospitalized for LUIS E and severe pre-eclampsia with SOB - Current Medications Current Medications: Active Medications Acetaminophen (Tylenol -) 650 mg PO Q6H PRN PRN Reason: PAIN LEVEL 1-5 Last Admin: 06/25/19 16:25 Dose: 650 mg Furosemide (Lasix -) [address] [facility] Heparin Sodium (Porcine) (Heparin -) 5,[address] [facility] Last Admin: 06/25/19 14:02 Dose: 5,000 unit Labetalol HCl (Normodyne -) [address] [facility] Last Admin: 06/25/19 09:50 Dose: 200 mg Nifedipine (Procardia Xl -) [address] [facility] Last Admin: 06/25/19 09:50 Dose: 60 mg Sevelamer Carbonate (Renvela -) [address] [facility] Last Admin: 06/25/19 17:31 Dose: 800 mg - Objective Vital Signs: Vital Signs Temperature 98.6 F 06/25/19 14:00 Pulse Rate 90 06/25/19 14:00 Respiratory Rate 18 06/25/19 14:00 Blood Pressure 132/66 06/25/19 14:00 O2 Sat by Pulse Oximetry (%) 95 06/25/19 09:00 Constitutional: Yes: No Distress, Calm, Obese Eyes: Yes: WNL, Conjunctiva Clear HENT: Yes: WNL, Atraumatic, Normocephalic Neck: Yes: WNL, Supple, Trachea Midline Cardiovascular: Yes: WNL, Regular Rate and Rhythm Respiratory: Yes: WNL, Regular, CTA Bilaterally Gastrointestinal: Yes: Normal Bowel Sounds, Soft, Abdomen, Obese ...Rectal Exam: Yes: Deferred Genitourinary: Yes: WNL ....Post : Yes: Slight lochia serosa Breast(s): Yes: WNL Musculoskeletal: Yes: WNL Extremities: Yes: WNL Peripheral Pulses WNL: Yes Edema: Yes Edema: LLE: 1+, RLE: 1+ Integumentary: Yes: WNL Wound/Incision: Yes: Clean/Dry, Well Approximated, Sutures Intact, Open to air Neurological: Yes: WNL, Alert, Oriented ...Motor Strength: Yes: WNL Psychiatric: Yes: WNL, Alert, Oriented Labs Lab Results: CBC, BMP 06/25/19 05:30 06/25/19 05:30 Imaging - Results Chest X-ray: Report Reviewed EKG: Report Reviewed Other: Report Reviewed Assessment/Plan 38yo with severe pre-eclampsia and LUIS E. Postop-- doing well. Advise ambulation and OOB as much as possible. -- pt is pumping. Baby is in NICU. No depression. Ambulate. Pre-eclampsia-- possible cause of LUIS E. Pt is asymptomatic. BP is better but still labile. Continue med titration for better control, per medical team. LUIS E -- improving
[2019-06-26] MEDS: HEPARIN NA (PORCINE) 5,000 UNITS/ML 1ML VIAL SQ SCH ×3 (05:36→22:07)
[2019-06-26 06:59] LABS: HEMATOCRIT 32.3 % (32.4-45.2); HEMOGLOBIN 10.6 GM/dL (10.7-15.3); MCH 25.8 pg (25.7-33.7); MCHC 32.8 g/dl (32.0-36.0); MEAN CELL VOLUME 78.6 fl (80-96); MEAN PLT VOLUME 8.7 fl (7.5-11.1); PLATELET COUNT 265 K/MM3 (134-434); RDW 16.1 % (11.6-15.6); WHITE BLOOD COUNT 11.1 K/mm3 (4.0-10.0)
[2019-06-26 08:07] LABS: ALBUMIN 3.1 g/dl (3.4-5.0); BILIRUBIN,TOTAL 0.3 mg/dL (0.2-1); BLOOD UREA NITROGEN 43.8 mg/dL (7-18); CALCIUM 9.8 mg/dL (8.5-10.1); CREATININE 1.8 mg/dL (0.55-1.3); MAGNESIUM 1.9 mg/dL (1.8-2.4); TOT PROT 7.3 g/dl (6.4-8.2)
--- NOTE | 2019-06-26 08:50 | PN ---
Progress Note (SOAP) - Subjective History of Present Illness: No acute complaints Denies chest pain, shortness of breath Continued pumping Mild lochia - Current Medications Current Medications: Active Medications Acetaminophen (Tylenol -) 650 mg PO Q6H PRN PRN Reason: PAIN LEVEL 1-5 Last Admin: 06/25/19 16:25 Dose: 650 mg Furosemide (Lasix -) 40 mg PO DAILY [facility] Heparin Sodium (Porcine) (Heparin -) 5,000 unit SQ TID [facility] Last Admin: 06/26/19 05:36 Dose: 5,000 unit Labetalol HCl (Normodyne -) 200 mg PO BID [facility] Last Admin: 06/25/19 22:48 Dose: 200 mg Nifedipine (Procardia Xl -) 60 mg PO DAILY [facility] Last Admin: 06/25/19 09:50 Dose: 60 mg Sevelamer Carbonate (Renvela -) 800 mg PO TIDCM [facility] Last Admin: 06/25/19 17:31 Dose: 800 mg - Objective Vital Signs: Vital Signs Temperature 99.0 F 06/26/19 05:57 Pulse Rate 81 06/26/19 05:57 Respiratory Rate 18 06/26/19 05:57 Blood Pressure 152/82 06/26/19 05:57 O2 Sat by Pulse Oximetry (%) 96 06/25/19 20:19 Constitutional: Yes: No Distress, Calm Respiratory: Yes: CTA Bilaterally Gastrointestinal: Yes: Normal Bowel Sounds, Soft ....Post : Yes: Uterus firm, Uterus non-tender, Slight lochia rubra Extremities: Yes: WNL Edema: LLE: Trace, RLE: Trace Wound/Incision: Yes: Clean/Dry, Well Approximated, Sutures Intact, Open to air Neurological: Yes: Alert, Oriented Psychiatric: Yes: Alert, Oriented Labs Lab Results: CBC, BMP 06/26/19 05:35 06/26/19 05:35 Assessment/Plan 38 yo POD #9 s/p CD, HD #4 s/p admission for severe preeclampsia, LUIS E Continue management per primary team No concerns for depression, good support Baby in NICU, currently pumping Preeclampsia - labile BPs, will continue to titrate medications for BP control LUIS E - on Lasix and Cr improving Will continue to follow
[2019-06-26] MEDS: SEVELAMER CARBONATE 800 MG TAB (FP) PO SCH (09:19)
[2019-06-26] MEDS: LABETALOL HCL 200 MG TABLET (FP) PO SCH ×2 (09:19→22:05)
[2019-06-26] MEDS: NIFEdipine E.R 60 MG TABLET (UD) PO SCH (09:19)
[2019-06-26] MEDS: FUROSEMIDE 40 MG TABLET (FP) PO SCH (09:20)
[2019-06-26 09:52] LABS: PHOSPHOROUS 5.2 mg/dL (2.5-4.9)
[2019-06-26] MEDS ORDERED: DOCUSATE SODIUM 100 MG CAPSULE (FP) PO PRN (12:07)
--- NOTE | 2019-06-26 12:33 | PN ---
Progress Note, Physician Chief Complaint: Not in distress History of Present Illness: Patient was seen and examined. Awake and alert. Chart was reviewed Denies chest pain, SOB or palpitations - Current Medication List Current Medications: Active Medications Acetaminophen (Tylenol -) 650 mg PO Q6H PRN PRN Reason: PAIN LEVEL 1-5 Last Admin: 06/25/19 16:25 Dose: 650 mg Docusate Sodium (Colace -) 100 mg PO BID PRN PRN Reason: CONSTIPATION Ferrous Sulfate (Feosol -) 325 mg PO BIDWM [facility] Furosemide (Lasix -) 40 mg PO DAILY [facility] Last Admin: 06/26/19 09:20 Dose: 40 mg Heparin Sodium (Porcine) (Heparin -) 5,000 unit SQ TID [facility] Last Admin: 06/26/19 05:36 Dose: 5,000 unit Labetalol HCl (Normodyne -) 200 mg PO BID [facility] Last Admin: 06/26/19 09:19 Dose: 200 mg Nifedipine (Procardia Xl -) 60 mg PO DAILY [facility] Last Admin: 06/26/19 09:19 Dose: 60 mg - Objective Vital Signs: Vital Signs Temperature 97.7 F 06/26/19 10:00 Pulse Rate 109 H 06/26/19 10:00 Respiratory Rate 18 06/26/19 10:00 Blood Pressure 138/74 06/26/19 10:00 O2 Sat by Pulse Oximetry (%) 97 06/26/19 09:00 Eyes: Yes: PERRL HENT: Yes: Atraumatic Neck: Yes: Supple Cardiovascular: Yes: Regular Rate and Rhythm, Tachycardia, S1, S2 Respiratory: Yes: CTA Bilaterally Gastrointestinal: Yes: Normal Bowel Sounds, Soft. No: Tenderness Edema: No Additional Findings/Remarks: - Review of Systems Constitutional: denies: Chills, Fever Cardiovascular: reports: Shortness of Breath. denies: Chest Pain, Palpitations Respiratory: reports: SOB, SOB on Exertion. denies: Cough, Hemoptysis, Orthopnea, PND Gastrointestinal: denies: Abdominal Pain, Constipation, Diarrhea, Melena, Nausea , Rectal Bleeding, Vomiting Genitourinary: denies: Dysuria, Hematuria Musculoskeletal: denies: Back Pain, Joint Pain Neurological: denies: Dizziness, Headache, Seizure, Syncope Labs: CBC, BMP 06/26/19 05:35 06/26/19 05:35 INR, PTT INR 0.97 (0.83-1.09) 06/23/19 18:00 Problem List - Problems (1) HTN (hypertension) Code(s): I10 - ESSENTIAL (PRIMARY) HYPERTENSION (2) LUIS E (acute kidney injury) Code(s): N17.9 - ACUTE KIDNEY FAILURE, UNSPECIFIED (3) Pedal edema Code(s): R60.0 - LOCALIZED EDEMA (4) Shortness of breath Code(s): R06.02 - SHORTNESS OF BREATH Assessment/Plan 1. Post with history of pre-eclampsia 2. Acute Kidney Injury with elevated Cr - improved 3. HTN - improved PLAN: 1. Continue to monitor renal function 2. Continue Labetalol 200 mg BID. Continue Procardia XL 60 mg QD 3. Diuretics and monitor daily weight, I/Os, renal function and electrolytes 4. Follow up as outpatient once clinically stable Further plans are to follow Eugene Fuentes MD
--- NOTE | 2019-06-26 13:27 | PN ---
Teaching Attending Note Name of Resident: Dacia Castillo ATTENDING PHYSICIAN STATEMENT I saw and evaluated the patient. I reviewed the resident's note and discussed the case with the resident. I agree with the resident's findings and plan as documented. SUBJECTIVE: Feeling better. No headache, visual disturbance/nausea/vomiting/ dizziness. No fever/chills. No CP/SOB. No dysuria/hematuria OBJECTIVE: Afebrile, Hemodynamically Stable. Last Vital Signs Temp Pulse Resp BP Pulse Ox 97.7 F 109 H 18 138/74 97 06/26/19 10:00 06/26/19 10:00 06/26/19 10:00 06/26/19 10:00 06/26/19 09:00 HEENT - Atraumatic, Normocephalic. AKIKO. EOMI Heart - S1, S2, RRR Lungs - clear to auscultation Abdomen - incision. Soft, non-tender. Bowel Sounds normal. Extremities - Edema + improving. No calf tenderness. Laboratory Results - last 24 hr 06/25/19 06/25/19 06/25/19 09:00 16:40 17:33 WBC RBC Hgb Hct MCV MCH MCHC RDW Plt Count MPV Sodium Potassium Chloride Carbon Dioxide Anion Gap BUN Creatinine Est GFR (CKD-EPI)AfAm Est GFR (CKD-EPI)NonAf POC Glucometer 90 Random Glucose Calcium 11.0 H Phosphorus Magnesium Iron 49 L TIBC 385 Iron Saturation 12 L Unsaturated IBC 336 H Ferritin Total Bilirubin AST ALT Alkaline Phosphatase Total Protein Albumin PTH Intact 21 PTH Intact Intraop 0 m 06/25/19 06/26/19 06/26/19 20:13 05:35 05:35 WBC 11.1 H RBC 4.10 Hgb 10.6 L Hct 32.3 L MCV 78.6 L MCH 25.8 MCHC 32.8 RDW 16.1 H Plt Count 265 MPV 8.7 Sodium 138 Potassium 4.0 Chloride 102 Carbon Dioxide 26 Anion Gap 11 BUN 43.8 H Creatinine 1.8 H Est GFR (CKD-EPI)AfAm 40.95 Est GFR (CKD-EPI)NonAf 35.33 POC Glucometer 104 Random Glucose 81 Calcium 9.8 Phosphorus 5.2 H Magnesium 1.9 Iron 48 L TIBC Iron Saturation Unsaturated IBC Ferritin 111.7 Total Bilirubin 0.3 AST 29 ALT 76 H Alkaline Phosphatase 77 Total Protein 7.3 Albumin 3.1 L PTH Intact PTH Intact Intraop 0 m Current Medications Generic Name Dose Route Start Last Admin Trade Name Freq PRN Reason Stop Dose Admin Acetaminophen 650 mg 06/24/19 00:09 06/25/19 16:25 Tylenol - PO 650 mg Q6H PRN Administration PAIN LEVEL 1-5 Docusate Sodium 100 mg 06/26/19 12:07 Colace - PO BID PRN CONSTIPATION Ferrous Sulfate 325 mg 06/26/19 17:30 Feosol - PO BIDWM AYAN Furosemide 40 mg 06/26/19 10:00 06/26/19 09:20 Lasix - PO 40 mg DAILY [facility] Administration Heparin Sodium (Porcine) 5,000 unit 06/25/19 10:00 06/26/19 05:36 Heparin - SQ 5,000 unit TID AYAN Administration Labetalol HCl 200 mg 06/24/19 10:00 06/26/19 09:19 Normodyne - PO 200 mg BID AYAN Administration Nifedipine 60 mg 06/25/19 10:00 06/26/19 09:19 Procardia Xl - PO 60 mg DAILY [facility] Administration Home Medications Medication Instructions Recorded Ferrous Sulfate [Feosol] 325 mg PO BID 06/13/19 Vitamins (Sjr) - 1 tab PO DAILY 06/13/19 Acetaminophen [Tylenol -] 1,000 mg PO Q6H #60 tablet 06/21/19 Ibuprofen [Motrin -] 600 mg PO QID #28 tablet 06/21/19 Labetalol HCl [Normodyne -] 200 mg PO Q6H PRN #60 tablet 06/21/19 ASSESSMENT/PLAN: 38 year old female s/p recent , presents with 2-3 day history of worsening dyspnea, and orthopnea. No chest pain/palpitations/cough/sputum/fever/ chills. 1. Acute Diastolic CHF sec to Uncontrolled HTN versus Pre-Eclampsia Edema present but no proteinuria. Obstetrics following. BP better controlled on Labetolol and Nifedipine (dose increased to Nifedipine XL 60mg). Echo - normal EF, mildly elevated PA pressure. Receiving Lasix for LE edema/orthopnea - transitioned from IV to PO 06/25. Further diuretic therapy as per Nephrology 2. LUIS E, etiology unclear. ?sec to NSAIDs ?DARLEEN Renal function improving. Renal US - mildly echogenic R kidney, no obstruction. Nephrology following Renal Artery Doppler ordered but apparently not done as in-patient at [facility] - can be done as out-patient. 3. Hyperkalemia sec to LUIS E - resolved. 4. Microcytic Anemia s/p - no evidence of ongoing blood loss. Iron Sat 12%. On FeSO4 supplementation. DVT Px - Heparin SQ.
--- NOTE | 2019-06-26 13:39 | PN ---
Progress Note (short form) - Note Progress Note: doing well, no c/o CBC, BMP 06/26/19 05:35 06/26/19 05:35 Last Vital Signs Temp Pulse Resp BP Pulse Ox 97.7 F 109 H 18 138/74 97 06/26/19 10:00 06/26/19 10:00 06/26/19 10:00 06/26/19 10:00 06/26/19 09:00 Laboratory Results - last 24 hr 06/25/19 06/25/19 06/25/19 09:00 16:40 17:33 WBC RBC Hgb Hct MCV MCH MCHC RDW Plt Count MPV Sodium Potassium Chloride Carbon Dioxide Anion Gap BUN Creatinine Est GFR (CKD-EPI)AfAm Est GFR (CKD-EPI)NonAf POC Glucometer 90 Random Glucose Calcium 11.0 H Phosphorus Magnesium Iron 49 L TIBC 385 Iron Saturation 12 L Unsaturated IBC 336 H Ferritin Total Bilirubin AST ALT Alkaline Phosphatase Total Protein Albumin PTH Intact 21 PTH Intact Intraop 0 m 06/25/19 06/26/19 06/26/19 20:13 05:35 05:35 WBC 11.1 H RBC 4.10 Hgb 10.6 L Hct 32.3 L MCV 78.6 L MCH 25.8 MCHC 32.8 RDW 16.1 H Plt Count 265 MPV 8.7 Sodium 138 Potassium 4.0 Chloride 102 Carbon Dioxide 26 Anion Gap 11 BUN 43.8 H Creatinine 1.8 H Est GFR (CKD-EPI)AfAm 40.95 Est GFR (CKD-EPI)NonAf 35.33 POC Glucometer 104 Random Glucose 81 Calcium 9.8 Phosphorus 5.2 H Magnesium 1.9 Iron 48 L TIBC Iron Saturation Unsaturated IBC Ferritin 111.7 Total Bilirubin 0.3 AST 29 ALT 76 H Alkaline Phosphatase 77 Total Protein 7.3 Albumin 3.1 L PTH Intact PTH Intact Intraop 0 m abdomen soft, no RUQ tenderness , no cva incision dry, mary ann ext. 1 = edema impression BP are improving, renal function improved significantly , plan cont. present management
--- NOTE | 2019-06-26 14:04 | PN ---
Physical Exam: SUBJECTIVE: Patient seen and examined. No acute events overnight. OBJECTIVE: Vital Signs Period Temp Pulse Resp BP Sys/Ruth Pulse Ox Last 24 Hr 97.7 F-100 F 81-109 18-18 138-152/74-89 96-97 GENERAL: The patient is awake, alert, and fully oriented, in no acute distress. HEAD: Normal with no signs of trauma. EYES: PERRL, extraocular movements intact, sclera anicteric, conjunctiva clear. No ptosis. ENT: Ears normal, nares patent, oropharynx clear without exudates, moist mucous membranes. NECK: Trachea midline, full range of motion, supple. LUNGS: Breath sounds equal, clear to auscultation bilaterally, no wheezes, no crackles, no accessory muscle use. HEART: Regular rate and rhythm, S1, S2 without murmur, rub or gallop. ABDOMEN: Soft, nontender, nondistended, normoactive bowel sounds, no guarding, no rebound, no hepatosplenomegaly, no masses. EXTREMITIES: 2+ pulses, warm, well-perfused, trace edema. NEUROLOGICAL: Cranial nerves II through XII grossly intact. Normal speech, gait not observed. PSYCH: Normal mood, normal affect. SKIN: Warm, dry, normal turgor, no rashes or lesions noted Laboratory Results - last 24 hr CBC, BMP 06/26/19 05:35 06/26/19 05:35 Active Medications Acetaminophen (Tylenol -) 650 mg PO Q6H PRN PRN Reason: PAIN LEVEL 1-5 Last Admin: 06/25/19 16:25 Dose: 650 mg Docusate Sodium (Colace -) 100 mg PO BID PRN PRN Reason: CONSTIPATION Ferrous Sulfate (Feosol -) 325 mg PO BIDWM [facility] Furosemide (Lasix -) 40 mg PO DAILY [facility] Last Admin: 06/26/19 09:20 Dose: 40 mg Heparin Sodium (Porcine) (Heparin -) 5,000 unit SQ TID [facility] Last Admin: 06/26/19 05:36 Dose: 5,000 unit Labetalol HCl (Normodyne -) 200 mg PO BID [facility] Last Admin: 06/26/19 09:19 Dose: 200 mg Nifedipine (Procardia Xl -) 60 mg PO DAILY [facility] Last Admin: 06/26/19 09:19 Dose: 60 mg ASSESSMENT/PLAN: 38 y/o F s/p C section at 34 weeks gestation for pre-eclampsia 6 days ago admitted for hypertensive urgency and acute renal failure. #Hypertensive emergency w/SOB and lower extremity edema 2/2 preeclampsia vs cardiomyopathy Echo: LV normal, EF: 60%, RV normal, RA and LA normal, mild pulmonary HTN, mild eccentric MR, RVP elevated at 37mmhg Cont BP control with labetolol 200mg BID and increase procardia to 60mg daily Cont Lasix 40mg po daily Cardiology and nephrology on board, recommendations appreciated Duplex US: no evidence of DVT Renal artery doppler as outpatient to r/o renal artery stenosis #LUIS E w/hyperkalemia 2/2 NSAID use vs cardiomyopathy Cr: 1.8, improving from 4.4. K: 4.0, improving from 5.9 UA: neg for proteinuria Cont to monitor BMP Renal US: no hydronephrosis or obstructive uropathy. Small echogenic R kidney Avoid nephrotoxic agents Nephrology consulted: f/u SPEP, UPEP, and urine electrolytes and eosinophils #Microcytic anemia, iron deficiency Likely 2/2 recent surgery Ferrous sulfate 325 mg BID and colace 100mg BID #FEN No IV fluids Sodium controlled diet Monitor BMP closely #DVT Ppx Lovenox 40mg --> switched to Hep SQ TID #Dispo Monitor on med-surg ATTENDING PHYSICIAN STATEMENT I saw and evaluated the patient. I reviewed the resident's note and discussed the case with the resident. I agree with the resident's findings and plan as documented. SUBJECTIVE: OBJECTIVE: ASSESSMENT AND PLAN:
--- NOTE | 2019-06-26 14:06 | PN ---
Progress Note, Physician History of Present Illness: Pt seen and examined at bedside. She is awake and alert. She denies shortness of breath. - Current Medication List Current Medications: Active Medications Acetaminophen (Tylenol -) 650 mg PO Q6H PRN PRN Reason: PAIN LEVEL 1-5 Last Admin: 06/25/19 16:25 Dose: 650 mg Docusate Sodium (Colace -) 100 mg PO BID PRN PRN Reason: CONSTIPATION Ferrous Sulfate (Feosol -) 325 mg PO BIDWM [facility] Furosemide (Lasix -) 40 mg PO DAILY [facility] Last Admin: 06/26/19 09:20 Dose: 40 mg Heparin Sodium (Porcine) (Heparin -) 5,000 unit SQ TID [facility] Last Admin: 06/26/19 05:36 Dose: 5,000 unit Labetalol HCl (Normodyne -) 200 mg PO BID [facility] Last Admin: 06/26/19 09:19 Dose: 200 mg Nifedipine (Procardia Xl -) 60 mg PO DAILY [facility] Last Admin: 06/26/19 09:19 Dose: 60 mg - Objective Vital Signs: Vital Signs Temperature 97.7 F 06/26/19 10:00 Pulse Rate 109 H 06/26/19 10:00 Respiratory Rate 18 06/26/19 10:00 Blood Pressure 138/74 06/26/19 10:00 O2 Sat by Pulse Oximetry (%) 97 06/26/19 09:00 Constitutional: Yes: Calm Eyes: Yes: Conjunctiva Clear HENT: Yes: Atraumatic Neck: Yes: Supple Cardiovascular: Yes: S1, S2 Respiratory: Yes: CTA Bilaterally Gastrointestinal: Yes: Soft Genitourinary: Yes: WNL Musculoskeletal: Yes: WNL Edema: Yes Edema: LLE: Trace, RLE: Trace Neurological: Yes: Oriented Psychiatric: Yes: Oriented Labs: CBC, BMP 06/26/19 05:35 06/26/19 05:35 INR, PTT INR 0.97 (0.83-1.09) 06/23/19 18:00 Assessment/Plan Current Medications Generic Name Dose Route Start Last Admin Trade Name Freq PRN Reason Stop Dose Admin Acetaminophen 650 mg 06/24/19 00:09 06/25/19 16:25 Tylenol - PO 650 mg Q6H PRN Administration PAIN LEVEL 1-5 Docusate Sodium 100 mg 06/26/19 12:07 Colace - PO BID PRN CONSTIPATION Ferrous Sulfate 325 mg 06/26/19 17:30 Feosol - PO BIDWM [facility] Furosemide 40 mg 06/26/19 10:00 06/26/19 09:20 Lasix - PO 40 mg DAILY [facility] Administration Heparin Sodium (Porcine) 5,000 unit 06/25/19 10:00 06/26/19 05:36 Heparin - SQ 5,000 unit TID [facility] Administration Labetalol HCl 200 mg 06/24/19 10:00 06/26/19 09:19 Normodyne - PO 200 mg BID [facility] Administration Nifedipine 60 mg 06/25/19 10:00 06/26/19 09:19 Procardia Xl - PO 60 mg DAILY [facility] Administration Laboratory Tests 06/24/19 06/24/19 06/25/19 17:30 17:30 05:30 Ur Random Creatinine < 13.0 L Urine Creatinine < 13.0 L Protein/Creatinin Ratio 0.0 MIGUEL Screen Pending Double Strand DNA Ab Pending Impression 1. LUIS E 2. fluid overload 3. nsaid use 4. s/p 5. htn 6. anemia 7. hyperkalemia 8. hypercalcemia Plan - cont po lasix - monitor bp - repeat labs in am - can d/c sevelamer as phos is improved - ua neg for protein - will need outpt follow up - repeat labs in am - recommend another day of hospital monitoring - discussed with flatbed owner operator Dr Isabel
[2019-06-26] MEDS: FERROUS SO4 325 MG TABLET (FP) PO SCH (17:48)
[2019-06-27] MEDS: HEPARIN NA (PORCINE) 5,000 UNITS/ML 1ML VIAL SQ SCH ×2 (05:58→15:38)
[2019-06-27 06:30] LABS: HEMATOCRIT 33.5 % (32.4-45.2); HEMOGLOBIN 11.1 GM/dL (10.7-15.3); MCH 26.1 pg (25.7-33.7); MEAN CELL VOLUME 79.1 fl (80-96); MEAN PLT VOLUME 8.5 fl (7.5-11.1); PLATELET COUNT 290 K/MM3 (134-434); RBC 4.24 M/mm3 (3.60-5.2); RDW 16.4 % (11.6-15.6); WHITE BLOOD COUNT 10.4 K/mm3 (4.0-10.0)
[2019-06-27 06:58] LABS: BLOOD UREA NITROGEN 40.6 mg/dL (7-18); CALCIUM 9.7 mg/dL (8.5-10.1); CREATININE 1.6 mg/dL (0.55-1.3); POTASSIUM 3.8 mmol/L (3.5-5.1)
[2019-06-27] MEDS ORDERED: NIFEdipine E.R. 30 MG TABLET (FP) PO SCH (07:33)
[2019-06-27 08:38] VITALS: BP 122/69; PULSE 93; TEMP 98
[2019-06-27] MEDS: FERROUS SO4 325 MG TABLET (FP) PO SCH (08:59)
[2019-06-27] MEDS: LABETALOL HCL 200 MG TABLET (FP) PO SCH (09:00)
[2019-06-27] MEDS: FUROSEMIDE 40 MG TABLET (FP) PO SCH (09:00)
--- NOTE | 2019-06-27 11:36 | PN ---
Progress Note, Physician Chief Complaint: Not in distress History of Present Illness: Patient was seen and examined. Awake and alert. Chart was reviewed Denies chest pain, SOB or palpitations - Current Medication List Current Medications: Active Medications Acetaminophen (Tylenol -) 650 mg PO Q6H PRN PRN Reason: PAIN LEVEL 1-5 Last Admin: 06/25/19 16:25 Dose: 650 mg Docusate Sodium (Colace -) 100 mg PO BID PRN PRN Reason: CONSTIPATION Ferrous Sulfate (Feosol -) 325 mg PO BIDWM [facility] Last Admin: 06/27/19 08:59 Dose: 325 mg Furosemide (Lasix -) 40 mg PO DAILY [facility] Last Admin: 06/27/19 09:00 Dose: 40 mg Heparin Sodium (Porcine) (Heparin -) 5,000 unit SQ TID [facility] Last Admin: 06/27/19 05:58 Dose: 5,000 unit Labetalol HCl (Normodyne -) 200 mg PO BID [facility] Last Admin: 06/27/19 09:00 Dose: 200 mg Nifedipine (Procardia Xl -) 30 mg PO DAILY [facility] Last Admin: 06/27/19 09:00 Dose: 30 mg - Objective Vital Signs: Vital Signs Temperature 98.0 F 06/27/19 08:37 Pulse Rate 93 H 06/27/19 08:37 Respiratory Rate 18 06/27/19 08:37 Blood Pressure 122/69 06/27/19 08:37 O2 Sat by Pulse Oximetry (%) 97 06/26/19 20:10 Eyes: Yes: PERRL HENT: Yes: Atraumatic Neck: Yes: Supple Cardiovascular: Yes: Regular Rate and Rhythm, S1, S2 Respiratory: Yes: CTA Bilaterally Gastrointestinal: Yes: Normal Bowel Sounds, Soft. No: Tenderness Edema: Yes Edema: LLE: Trace, RLE: Trace Additional Findings/Remarks: - Review of Systems Constitutional: denies: Chills, Fever Cardiovascular: reports: Shortness of Breath. denies: Chest Pain, Palpitations Respiratory: reports: SOB, SOB on Exertion. denies: Cough, Hemoptysis, Orthopnea, PND Gastrointestinal: denies: Abdominal Pain, Constipation, Diarrhea, Melena, Nausea , Rectal Bleeding, Vomiting Genitourinary: denies: Dysuria, Hematuria Musculoskeletal: denies: Back Pain, Joint Pain Neurological: denies: Dizziness, Headache, Seizure, Syncope Labs: CBC, BMP 06/27/19 05:55 06/27/19 05:55 Problem List - Problems (1) HTN (hypertension) Code(s): I10 - ESSENTIAL (PRIMARY) HYPERTENSION Qualifiers: Hypertension type: essential hypertension Qualified Code(s): I10 - Essential (primary) hypertension (2) LUIS E (acute kidney injury) Code(s): N17.9 - ACUTE KIDNEY FAILURE, UNSPECIFIED (3) Pedal edema Code(s): R60.0 - LOCALIZED EDEMA (4) Shortness of breath Code(s): R06.02 - SHORTNESS OF BREATH Assessment/Plan 1. Post with history of pre-eclampsia 2. Acute Kidney Injury with elevated Cr - improved 3. HTN - improved ? related ? secondary HTN due to DARLEEN PLAN: 1. Continue to monitor renal function. Renal input noted 2. Continue Labetalol 200 mg BID. Continue Procardia XL, currently reduced to 30 mg QD 3. Diuretics and monitor daily weight, I/Os, renal function and electrolytes [facility]. [phone] 5. Further work up including renal artery Doppler or other imaging modality to assess DARLEEN can be done as outpatient. Avoid ACEI or ARB Further plans are to follow Eugene Fuentes MD
--- NOTE | 2019-06-27 12:36 | PN ---
Teaching Attending Note Name of Resident: Dacia Castillo ATTENDING PHYSICIAN STATEMENT I saw and evaluated the patient. I reviewed the resident's note and discussed the case with the resident. I agree with the resident's findings and plan as documented. SUBJECTIVE: Feeling better. No headache, visual disturbance/nausea/vomiting/ dizziness. No fever/chills. No CP/SOB. No dysuria/hematuria OBJECTIVE: Afebrile, Hemodynamically Stable. Last Vital Signs Temp Pulse Resp BP Pulse Ox 98.0 F 93 H 18 122/69 97 06/27/19 08:37 06/27/19 08:37 06/27/19 08:37 06/27/19 08:37 06/27/19 09:00 HEENT - Atraumatic, Normocephalic. AKIKO. EOMI Heart - S1, S2, RRR Lungs - clear to auscultation Abdomen - incision. Soft, non-tender. Bowel Sounds normal. Extremities - Edema + improved. No calf tenderness. Laboratory Results - last 24 hr 06/24/19 06/25/19 06/26/19 17:30 05:30 17:53 WBC RBC Hgb Hct MCV MCH MCHC RDW Plt Count MPV Sodium Potassium Chloride Carbon Dioxide Anion Gap BUN Creatinine Est GFR (CKD-EPI)AfAm Est GFR (CKD-EPI)NonAf POC Glucometer 84 Random Glucose Calcium Urine Eosinophils None seen MIGUEL Screen Negative Double Strand DNA Ab 1 06/26/19 06/27/19 06/27/19 22:25 05:55 05:55 WBC 10.4 H RBC 4.24 Hgb 11.1 Hct 33.5 MCV 79.1 L MCH 26.1 MCHC 33.0 RDW 16.4 H Plt Count 290 MPV 8.5 Sodium 141 Potassium 3.8 Chloride 104 Carbon Dioxide 26 Anion Gap 11 BUN 40.6 H Creatinine 1.6 H Est GFR (CKD-EPI)AfAm 47.22 Est GFR (CKD-EPI)NonAf 40.74 POC Glucometer 91 Random Glucose 102 Calcium 9.7 Urine Eosinophils MIGUEL Screen Double Strand DNA Ab 06/27/19 05:58 WBC RBC Hgb Hct MCV MCH MCHC RDW Plt Count MPV Sodium Potassium Chloride Carbon Dioxide Anion Gap BUN Creatinine Est GFR (CKD-EPI)AfAm Est GFR (CKD-EPI)NonAf POC Glucometer 104 Random Glucose Calcium Urine Eosinophils MIGUEL Screen Double Strand DNA Ab Current Medications Generic Name Dose Route Start Last Admin Trade Name Ryanq PRN Reason Stop Dose Admin Acetaminophen 650 mg 06/24/19 00:09 06/25/19 16:25 Tylenol - PO 650 mg Q6H PRN Administration PAIN LEVEL 1-5 Docusate Sodium 100 mg 06/26/19 12:07 Colace - PO BID PRN CONSTIPATION Ferrous Sulfate 325 mg 06/26/19 17:30 06/27/19 08:59 Feosol - PO 325 mg BIDWM [facility] Administration Furosemide 40 mg 06/26/19 10:00 06/27/19 09:00 Lasix - PO 40 mg DAILY [facility] Administration Heparin Sodium (Porcine) 5,000 unit 06/25/19 10:00 06/27/19 05:58 Heparin - SQ 5,000 unit TID [facility] Administration Labetalol HCl 200 mg 06/24/19 10:00 06/27/19 09:00 Normodyne - PO 200 mg BID [facility] Administration Nifedipine 30 mg 06/27/19 07:33 06/27/19 09:00 Procardia Xl - PO 30 mg DAILY [facility] Administration Home Medications Medication Instructions Recorded Ferrous Sulfate [Feosol] 325 mg PO BID 06/13/19 Vitamins (Sjr) - 1 tab PO DAILY 06/13/19 Acetaminophen [Tylenol -] 1,000 mg PO Q6H #60 tablet 06/21/19 Ibuprofen [Motrin -] 600 mg PO QID #28 tablet 06/21/19 Labetalol HCl [Normodyne -] 200 mg PO Q6H PRN #60 tablet 06/21/19 ASSESSMENT/PLAN: 38 year old female s/p recent , presents with 2-3 day history of worsening dyspnea, and orthopnea. No chest pain/palpitations/cough/sputum/fever/ chills. 1. Acute Diastolic CHF sec to Uncontrolled HTN ( induced) versus Pre- Eclampsia versus DARLEEN Edema present but no proteinuria. Obstetrics following. BP better controlled on Labetolol and Nifedipine (dose decreased to Nifedipine XL 30mg). Echo - normal EF, mildly elevated PA pressure. Receiving Lasix for LE edema/orthopnea - transitioned from IV to PO 06/25. Further diuretic therapy as per Nephrology Out-patient US Doppler to exclude DARLEEN. 2. LUIS E, etiology unclear. ?sec to NSAIDs Renal function improving. Renal US - mildly echogenic R kidney, no obstruction. Nephrology following Renal Artery Doppler ordered but apparently not done as in-patient at [facility] - can be done as out-patient. 3. Hyperkalemia sec to LUIS E - resolved. 4. Microcytic Anemia s/p - no evidence of ongoing blood loss. Iron Sat 12%. On FeSO4 supplementation. DVT Px - Heparin SQ.
--- NOTE | 2019-06-27 13:22 | PN ---
Progress Note, Physician History of Present Illness: Pt seen and examined at bedside. She is awake and alert. She denies shortness of breath. She feels that her lower ext edema is improving. - Current Medication List Current Medications: Active Medications Acetaminophen (Tylenol -) 650 mg PO Q6H PRN PRN Reason: PAIN LEVEL 1-5 Last Admin: 06/25/19 16:25 Dose: 650 mg Docusate Sodium (Colace -) 100 mg PO BID PRN PRN Reason: CONSTIPATION Ferrous Sulfate (Feosol -) 325 mg PO BIDWM [facility] Last Admin: 06/27/19 08:59 Dose: 325 mg Furosemide (Lasix -) 40 mg PO DAILY [facility] Last Admin: 06/27/19 09:00 Dose: 40 mg Heparin Sodium (Porcine) (Heparin -) 5,000 unit SQ TID [facility] Last Admin: 06/27/19 05:58 Dose: 5,000 unit Labetalol HCl (Normodyne -) 200 mg PO BID [facility] Last Admin: 06/27/19 09:00 Dose: 200 mg Nifedipine (Procardia Xl -) 30 mg PO DAILY [facility] Last Admin: 06/27/19 09:00 Dose: 30 mg - Objective Vital Signs: Vital Signs Temperature 98.0 F 06/27/19 08:37 Pulse Rate 93 H 06/27/19 08:37 Respiratory Rate 18 06/27/19 08:37 Blood Pressure 122/69 06/27/19 08:37 O2 Sat by Pulse Oximetry (%) 97 06/27/19 09:00 Constitutional: Yes: Calm Eyes: Yes: Conjunctiva Clear HENT: Yes: Atraumatic Neck: Yes: Supple Cardiovascular: Yes: S1, S2 Respiratory: Yes: CTA Bilaterally Gastrointestinal: Yes: Soft Genitourinary: Yes: WNL Musculoskeletal: Yes: WNL Edema: Yes Edema: LLE: Trace, RLE: Trace Integumentary: Yes: WNL Neurological: Yes: Oriented Psychiatric: Yes: Oriented Labs: CBC, BMP 06/27/19 05:55 06/27/19 05:55 INR, PTT INR 0.97 (0.83-1.09) 06/23/19 18:00 Assessment/Plan Current Medications Generic Name Dose Route Start Last Admin Trade Name Freq PRN Reason Stop Dose Admin Acetaminophen 650 mg 06/24/19 00:09 06/25/19 16:25 Tylenol - PO 650 mg Q6H PRN Administration PAIN LEVEL 1-5 Docusate Sodium 100 mg 06/26/19 12:07 Colace - PO BID PRN CONSTIPATION Ferrous Sulfate 325 mg 06/26/19 17:30 06/27/19 08:59 Feosol - PO 325 mg BIDWM [facility] Administration Furosemide 40 mg 06/26/19 10:00 06/27/19 09:00 Lasix - PO 40 mg DAILY [facility] Administration Heparin Sodium (Porcine) 5,000 unit 06/25/19 10:00 06/27/19 05:58 Heparin - SQ 5,000 unit TID [facility] Administration Labetalol HCl 200 mg 06/24/19 10:00 06/27/19 09:00 Normodyne - PO 200 mg BID [facility] Administration Nifedipine 30 mg 06/27/19 07:33 06/27/19 09:00 Procardia Xl - PO 30 mg DAILY [facility] Administration Laboratory Tests 06/25/19 06/27/19 05:30 05:55 Creatinine 1.6 H MIGUEL Screen Negative Double Strand DNA Ab 1 Impression 1. LUIS E 2. fluid overload 3. nsaid use 4. s/p 5. htn 6. anemia 7. hyperkalemia 8. hypercalcemia Plan - volume status improved - lasix 40 mg po for another few days - pt will check daily weights at home - decreased dose of procardia to 30 mg - cont labetolol - pt will keep a bp log at home and call if bp is high or low in order to titrate doses - will see pt in office on Sunday - pt and mother comfortable with plan - likely resolving atn from nsaids Dr Isabel
[2019-06-27 14:16] LABS: PHOSPHOROUS 4.1 mg/dL (2.5-4.9)
--- NOTE | 2019-06-27 14:25 | DS ---
Physical Exam: SUBJECTIVE: Patient seen and examined. No acute events overnight. OBJECTIVE: Vital Signs Period Temp Pulse Resp BP Sys/Ruth Pulse Ox Last 24 Hr 97.8 F-99.2 F 84-95 18-20 118-147/69-83 97-97 PHYSICAL EXAM GENERAL: The patient is awake, alert, and fully oriented, in no acute distress. HEAD: Normal with no signs of trauma. EYES: PERRL, extraocular movements intact, sclera anicteric, conjunctiva clear. ENT: Ears normal, nares patent, oropharynx clear without exudates, moist mucous membranes. NECK: Trachea midline, full range of motion, supple. LUNGS: Breath sounds equal, clear to auscultation bilaterally, no wheezes, no crackles, no accessory muscle use. HEART: Regular rate and rhythm, S1, S2 without murmur, rub or gallop. ABDOMEN: Soft, nontender, nondistended, normoactive bowel sounds, no guarding, no rebound, no hepatosplenomegaly, no masses. EXTREMITIES: 2+ pulses, warm, well-perfused, no edema. NEUROLOGICAL: Cranial nerves II through XII grossly intact. Normal speech, gait not observed. PSYCH: Normal mood, normal affect. SKIN: Warm, dry, normal turgor, no rashes or lesions noted. LABS Laboratory Results - last 24 hr CBC, BMP 06/27/19 05:55 06/27/19 05:55 HOSPITAL COURSE: Date of Admission:06/23/19 38 y/o F s/p C section at 34 weeks gestation for pre-eclampsia 6 days ago admitted for hypertensive urgency and acute renal failure likely secondary to pre-eclampsia and use of Motrin. BP on admission was 167/102 and creatinine was as high as 4.4 Cardiology (Dr. Fuentes) and nephrology (Dr. Isabel) were consulted and followed patient throughout admission. She was treated with 200mg Labetolol BID and Procardia 60mg for blood pressure control. She was also started on IV lasix 40mg and eventually decreased to po lasix 40mg daily. Pt's blood pressure normalized and creatinine decreased. Her vitals are now stable and she is clinically stable to be discharged on: Labetolol 200mg BID, Procardia 30mg daily, and Lasix 20mg daily. Pt was recommended to follow up with nephrology in 3 days. She was also recommended to receive a Doppler US of kidneys as outpatient to r/o renal artery stenosis. Echo showed normal LV size, EF: 60%. Renal US: mildly echogenic R kidney Date of Discharge: 06/27/19 Minutes to complete discharge: 45 Discharge Summary Problems reviewed: Yes Reason For Visit: SHORTNESS OF BREATH, ACUTE RENAL FAILURE Current Active Problems LUIS E (acute kidney injury) (Acute) HTN (hypertension) (Acute) Pedal edema (Acute) Shortness of breath (Acute) Condition: Improved - Instructions Diet, Activity, Other Instructions: You were admitted to the hospital for high blood pressure that caused headaches and difficulty breathing. You were given medications that helped bring down your blood pressure. While you were here, you also had an injury to your kidney that was likely caused by your high blood pressure as well as the use of Motrin medication. You should avoid taking Motrin or any NSAIDs if possible. It is important that you follow up with the safemaker, Dr. Isabel. You were also noted to be anemic.This was most likely from your recent C- section. Please continue taking Ferrous sulfate twice a day. You may take Colace as the Ferrous sulfate causes constipation. MEDICATIONS: 1. Take Labetolol 200mg twice a day (once in the morning, once in the evening) 2. Take Procardia 30mg once a day 3. Lasix 20mg once a day 4. Ferrous 325mg twice a day 5. Colace 100mg twice a day Resume all other home medications as prescribed. FOLLOW-UP: - Please follow up with your primary care physician within 1 week. - Please follow up with your OB-HOME SERVICE TECHNICIAN within 2 weeks. - Please follow up with nephrology (Dr. Isabel) on Sunday (06/30/19). We provided you a referral. You should receive a Doppler Ultrasound of your abdomen to evaluate your kidneys. Return to the emergency department if you experience any difficulty breathing, headaches, chest pain, or any other symptoms. Referrals: Reid Rajput MD [Staff Physician] - Angus Wall MD [Staff Physician] - Oleg Isabel MD [Staff Physician] - Disposition: HOME - Home Medications Comprehensive Discharge Medication List: Ambulatory Orders Ferrous Sulfate [Feosol] 325 mg PO BID 06/13/19 Vitamins (Sjr) - 1 tab PO DAILY 06/13/19 Docusate Sodium [Colace -] 100 mg PO BID PRN #60 capsule 06/27/19 Furosemide [Lasix] 20 mg PO DAILY #30 tablet 06/27/19 Labetalol HCl [Normodyne -] 200 mg PO BID #60 tablet 06/27/19 Nifedipine ER [Procardia XL -] 30 mg PO DAILY #60 tab.er.24 06/27/19 This patient is new to me today: No Emergency Visit: No Critical Care patient: No - Discharge Referral Referred to [facility] Med P.C[facility] No ATTENDING PHYSICIAN STATEMENT I saw and evaluated the patient. I reviewed the resident's note and discussed the case with the resident. I agree with the resident's findings and plan as documented. SUBJECTIVE: OBJECTIVE: ASSESSMENT AND PLAN:
== END 2019-06-27 17:03 | disposition home or self-care (01) | DRG 776 ==
LOC: JER 16:19 → JERBED 20:21 → J4S 06-24 01:27
PROVIDERS: ADMIT Internal Medicine
DX: O90.89 Other complications of the puerperium, not elsewhere classified (principal); I50.31 Acute diastolic (congestive) heart failure; N17.9 Acute kidney failure, unspecified; I43 Cardiomyopathy in diseases classified elsewhere; I11.0 Hypertensive heart disease with heart failure; I11.9 Hypertensive heart disease without heart failure; I16.0 Hypertensive urgency; E87.5 Hyperkalemia; E87.70 Fluid overload, unspecified; N14.1 Nephropathy induced by other drugs, medicaments and biological substances; T39.395A Adverse effect of other nonsteroidal anti-inflammatory drugs [NSAID], initial encounter; D64.9 Anemia, unspecified; E83.52 Hypercalcemia; O14.95 Unspecified pre-eclampsia, complicating the puerperium
CPT/HCPCS: 36415; 71046-TC-FY; 76775-TC; 76856-TC; 80048; 80053; 80061; 81003; 82043; 82310; 82550; 82565; 82570; 82728; 82962; 83036; 83540; 83550; 83615; 83721; 83735; 83880; 83970; 84100; 84156; 84484; 85025; 85027; 85610; 85730; 86038; 86225; 87205; 93005; 93010; 93306-TC; 93970-TC; 99284-25; J1644